=== PATIENT | female | born 1930 | race Caucasian/White ===

== ENCOUNTER → 2016-10-10 | Outpatient (CLI) | payer OTHER ==
[~2016-10-10] MED LIST: ACET-1311 PO; AMOX500T PO; ASCO500T3 PO; ASPI81TA28 PO; CALC-211 PO; CLC/300 PO; CYAN10005 PO; DCL250 PO; DIGO0.1219 PO; DOCU-94 PO; LNX125 PO; LPR100 PO; LSN5 PO; MIRT15TA2 PO; OXYC5TAB PO; POLY335019 PO; SENN-65 PO; SIMV40TA2 PO; TRAM-10 PO; WARF-285 PO; WARF2.5T8 PO
[2016-10-10 10:33] LABS: INR 1.5 (0.9-1.1); PROTHROMBIN TIME (PATIENT) 16.8 SECONDS (9.0-12.0)
== END | disposition home or self-care (01) ==
LOC: C.LABVPSUA 09:57
PROVIDERS: ATTEND Internal Medicine Critical Care Medicine
DX: I26.99 Other pulmonary embolism without acute cor pulmonale (principal)

== ENCOUNTER → 2016-10-13 | Outpatient (CLI) | payer OTHER ==
[2016-10-13 10:29] LABS: INR 1.5 (0.9-1.1); PROTHROMBIN TIME (PATIENT) 16.7 SECONDS (9.0-12.0)
== END ==
LOC: C.LABVPSUA 09:46
PROVIDERS: ATTEND Internal Medicine Critical Care Medicine
DX: I48.91 Unspecified atrial fibrillation (principal)

== ENCOUNTER → 2016-10-28 | Outpatient (CLI) | payer OTHER ==
[2016-10-28 07:56] LABS: INR 2.6 (0.9-1.1)
== END ==
LOC: C.LABVPSUA 10:52
PROVIDERS: ATTEND Internal Medicine Critical Care Medicine
DX: I82.409 Acute embolism and thrombosis of unspecified deep veins of unspecified lower extremity (principal)

== ENCOUNTER → 2016-10-31 | Outpatient (CLI) | payer OTHER ==
[2016-10-31 09:38] LABS: INR 2.3 (0.9-1.1); PROTHROMBIN TIME (PATIENT) 25.8 SECONDS (9.0-12.0)
== END ==
LOC: C.LABVPSUA 09:17
PROVIDERS: ATTEND Internal Medicine Critical Care Medicine
DX: I82.409 Acute embolism and thrombosis of unspecified deep veins of unspecified lower extremity (principal)

== ENCOUNTER → 2016-11-07 | Outpatient (CLI) | payer OTHER ==
[2016-11-07 09:43] LABS: INR 3.2 (0.9-1.1); PROTHROMBIN TIME (PATIENT) 36.1 SECONDS (9.0-12.0)
== END ==
LOC: C.LABVPSUA 09:23
PROVIDERS: ATTEND Internal Medicine Critical Care Medicine
DX: I82.409 Acute embolism and thrombosis of unspecified deep veins of unspecified lower extremity (principal)

== ENCOUNTER → 2016-11-21 | Outpatient (CLI) | payer OTHER ==
[~2016-11-21] MED LIST changes: -DCL250 PO
[2016-11-21 10:29] LABS: BLOOD UREA NITROGEN 18 mg/dl (7-18); CREATININE 0.91 mg/dl (0.60-1.20)
[2016-11-21 10:33] LABS: PREALBUMIN 16.4 mg/dl (20-40); PROTHROMBIN TIME (PATIENT) 56.1 SECONDS (9.0-12.0)
[2016-11-21 10:34] LABS: INR 4.9 (0.9-1.1)
== END | disposition home or self-care (01) ==
LOC: C.LABVPSUA 09:41
PROVIDERS: ATTEND Internal Medicine Critical Care Medicine
DX: Z01.812 Encounter for preprocedural laboratory examination (principal); I48.91 Unspecified atrial fibrillation; S31.839A Unspecified open wound of anus, initial encounter; X58.XXXA Exposure to other specified factors, initial encounter; M10.079 Idiopathic gout, unspecified ankle and foot

== ENCOUNTER → 2016-11-22 | Outpatient (CLI) | payer OTHER ==
[~2016-11-22] MED LIST changes: +OPTIRAY 320 IV PRN
--- NOTE | 2016-11-22 12:59 | DIAGNOSTIC IMAGING REPORT ---
PELVIS W/IV AND ORAL CONT (CT) HISTORY: Perirectal pain. PERIRECTAL ABSCESS TECHNIQUE: Multiaxial CT images of the pelvis performed following the use of intravenous and oral contrast. COMPARISON STUDY: Abdomen and pelvis CT 08/25/2016. FINDINGS: No perirectal fluid collections to suggest an abscess. Large amount well-formed stool seen within the rectum, unchanged. The uterus is surgically absent. The bladder is unremarkable. No pelvic free fluid. The visualized loops of bowel show no wall thickening or obstruction. Normal appendix. Scarlike densities within the left groin. Extensive vascular calcifications. 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 This remains unchanged. Multifocal stenosis within the right superficial femoral artery. No pelvic lymphadenopathy. Cholelithiasis. Midline ventral hernia containing a short segment of the transverse colon is again noted. Left posterior iliac bone defect consistent with postoperative change. Posterior decompression within the lower lumbar spine. IMPRESSION: 1. No perirectal fluid collections to suggest an abscess. 2. Rectosigmoid fecal fraction is again noted. 3. Additional chronic findings as described above. Electronically signed by: Anil Fontenot M.D. 11/22/2016 12:58 PM Dictated Date/Time: 11/22/2016 12:42 PM
== END | disposition home or self-care (01) ==
LOC: C.CTS 09:46
PROVIDERS: ATTEND Emergency Medicine
DX: K61.1 Rectal abscess (principal)

== ENCOUNTER → 2016-11-23 | Outpatient (CLI) | payer OTHER ==
[~2016-11-23] MED LIST changes: -OPTIRAY 320 IV PRN
[2016-11-23 09:38] LABS: PROTHROMBIN TIME (PATIENT) 22.6 SECONDS (9.0-12.0)
== END | disposition home or self-care (01) ==
LOC: C.LABVPSUA 08:40
PROVIDERS: ATTEND Internal Medicine Critical Care Medicine
DX: I48.91 Unspecified atrial fibrillation (principal)

== ENCOUNTER → 2016-11-27 | Outpatient (CLI) | payer OTHER ==
[2016-11-27 10:56] LABS: INR 1.2 (0.9-1.1); PROTHROMBIN TIME (PATIENT) 13.3 SECONDS (9.0-12.0)
== END | disposition home or self-care (01) ==
LOC: C.LABVPSUA 10:06
PROVIDERS: ATTEND Internal Medicine Critical Care Medicine
DX: I48.91 Unspecified atrial fibrillation (principal)

== ENCOUNTER → 2016-11-30 | Outpatient (CLI) | payer OTHER ==
[2016-11-30 10:13] LABS: INR 1.6 (0.9-1.1); PROTHROMBIN TIME (PATIENT) 16.9 SECONDS (9.0-12.0)
== END ==
LOC: C.LABVPSUA 09:26
PROVIDERS: ATTEND Internal Medicine Critical Care Medicine
DX: I48.91 Unspecified atrial fibrillation (principal)

== ENCOUNTER → 2016-12-07 | Outpatient (CLI) | payer OTHER ==
[2016-12-07 10:15] LABS: INR 1.9 (0.9-1.1); PROTHROMBIN TIME (PATIENT) 21.2 SECONDS (9.0-12.0)
== END | disposition home or self-care (01) ==
LOC: C.LABVPSUA 09:26
PROVIDERS: ATTEND Internal Medicine Critical Care Medicine
DX: I48.91 Unspecified atrial fibrillation (principal)

== ENCOUNTER → 2016-12-11 | Outpatient (CLI) | payer OTHER ==
[2016-12-11 10:36] LABS: PROTHROMBIN TIME (PATIENT) 21.5 SECONDS (9.0-12.0)
== END | disposition home or self-care (01) ==
LOC: C.LABVPSUA 10:15
PROVIDERS: ATTEND Internal Medicine Critical Care Medicine
DX: I48.91 Unspecified atrial fibrillation (principal)

== ENCOUNTER → 2016-12-20 | Outpatient (CLI) | payer OTHER ==
[2016-12-20 10:32] LABS: INR 2.2 (0.9-1.1); PROTHROMBIN TIME (PATIENT) 23.8 SECONDS (9.0-12.0)
== END | disposition home or self-care (01) ==
LOC: C.LABVPSUA 10:11
PROVIDERS: ATTEND Internal Medicine Critical Care Medicine
DX: I48.91 Unspecified atrial fibrillation (principal)

== ENCOUNTER → 2016-12-27 | Outpatient (CLI) | payer OTHER ==
[2016-12-27 10:52] LABS: INR 2.4 (0.9-1.1); PROTHROMBIN TIME (PATIENT) 26.8 SECONDS (9.0-12.0)
== END | disposition home or self-care (01) ==
LOC: C.LABVPSUA 10:13
PROVIDERS: ATTEND Internal Medicine Critical Care Medicine
DX: I48.91 Unspecified atrial fibrillation (principal)

== ENCOUNTER → 2017-01-15 | Outpatient (CLI) | payer OTHER ==
[2017-01-15 10:20] LABS: INR 1.9 (0.9-1.1); PROTHROMBIN TIME (PATIENT) 20.4 SECONDS (9.0-12.0)
== END ==
LOC: C.LABVPSUA 09:56
PROVIDERS: ATTEND Internal Medicine Critical Care Medicine
DX: I48.91 Unspecified atrial fibrillation (principal)

== ENCOUNTER → 2017-01-29 | Outpatient (CLI) | payer OTHER ==
[2017-01-29 10:23] LABS: BASO % 0.3 %; BASO ABS # 0.03 K/uL (0-0.2); EOS % 3.1 %; HEMATOCRIT 43.7 % (37-47); IG% 0.7 %; LYMPH % 10.7 %; LYMPH ABS # 1.15 K/uL (1.2-3.4); MEAN CELL VOLUME 95.6 fL (80-100); MEAN CORPUSCULAR HEMOGLOBIN 29.5 pg (25-34); MEAN CORPUSCULAR HGB CONC 30.9 g/dl (32-36); MEAN PLATELET VOLUME 11.1 fL (7.4-10.4); MONO % 5.5 %; NEUT % 79.7 %; PLATELET COUNT 244 K/uL (130-400); RED BLOOD COUNT 4.57 M/uL (4.2-5.4); WHITE BLOOD COUNT 10.72 K/uL (4.8-10.8)
[2017-01-29 10:28] LABS: INR 2.6 (0.9-1.1); PROTHROMBIN TIME (PATIENT) 28.4 SECONDS (9.0-12.0)
[2017-01-29 10:59] LABS: BLOOD UREA NITROGEN 22 mg/dl (7-18); BUN/CREATININE RATIO 24.1 (10-20); CALCIUM 8.9 mg/dl (8.5-10.1); CARBON DIOXIDE 23 mmol/L (21-32); CHLORIDE 111 mmol/L (98-107); CREATININE 0.92 mg/dl (0.60-1.20); GLUCOSE 128 mg/dl (70-99); POTASSIUM 3.9 mmol/L (3.5-5.1); SODIUM 144 mmol/L (136-145)
[2017-01-29 11:00] LABS: ANISOCYTOSIS PRESENT; COMPLETE YES
== END | disposition home or self-care (01) ==
LOC: C.LABVPSUA 09:54
PROVIDERS: ATTEND Internal Medicine Critical Care Medicine
DX: I48.91 Unspecified atrial fibrillation (principal); I10 Essential (primary) hypertension; I82.409 Acute embolism and thrombosis of unspecified deep veins of unspecified lower extremity

== ENCOUNTER → 2017-02-14 | Outpatient (CLI) | payer OTHER ==
[2017-02-14 10:17] LABS: INR 2.1 (0.9-1.1); PROTHROMBIN TIME (PATIENT) 22.8 SECONDS (9.0-12.0)
== END | disposition home or self-care (01) ==
LOC: C.LABVPSUA 09:49
PROVIDERS: ATTEND Internal Medicine Critical Care Medicine
DX: I82.409 Acute embolism and thrombosis of unspecified deep veins of unspecified lower extremity (principal)

== ENCOUNTER → 2017-03-16 | Outpatient (CLI) | payer OTHER ==
[2017-03-16 09:53] LABS: INR 2.1 (0.9-1.1); PROTHROMBIN TIME (PATIENT) 23.4 SECONDS (9.0-12.0)
== END | disposition home or self-care (01) ==
LOC: C.LABVPSUA 09:13
PROVIDERS: ATTEND Internal Medicine Critical Care Medicine
DX: I48.91 Unspecified atrial fibrillation (principal)

== ENCOUNTER → 2017-03-21 | Outpatient (CLI) | payer OTHER ==
--- NOTE | 2017-03-21 14:47 | DIAGNOSTIC IMAGING REPORT ---
MRI OF THE LEFT MIDFOOT NO CONTRAST CLINICAL HISTORY: Open wound. History of transmetatarsal amputation. Possible osteomyelitis. COMPARISON STUDY: 02/01/2016 FINDINGS: Imaging was performed in the sagittal, coronal, and axial planes. There are postsurgical changes of transmetatarsal amputations of the first through fifth toes. There is dorsal soft tissue edema most pronounced at the level of the first metatarsal stump. There is mild T1 and T2 edema involving the dorsal cortex of the residual first metatarsal. Given the overlying wound, the findings are felt to represent osteomyelitis. There are no additional areas of marrow edema to indicate osteomyelitis. There are no fluid collections to indicate a soft tissue abscess. There is a probable old bone infarct involving the distal tibia. IMPRESSION: 1. Postsurgical changes of transmetatarsal amputations involving the first through fifth digits 2. T1 and T2 marrow edema involving the dorsal cortex of the first metatarsal stump, consistent with osteomyelitis. Electronically signed by: Azael Dietrich M.D. 03/21/2017 2:46 PM Dictated Date/Time: 03/21/2017 2:40 PM
== END | disposition home or self-care (01) ==
LOC: C.MRIBC 13:29
PROVIDERS: ATTEND Physician Assistant
DX: Z89.432 Acquired absence of left foot (principal)

== ENCOUNTER → 2017-03-26 | Outpatient (CLI) | payer OTHER ==
--- NOTE | 2017-03-28 08:49 | CODING QUERY NO DIAGNOSIS ---
TREATMENT RENDERED WITHOUT A DIAGNOSIS Dr. Johnson, To promote full compliance with coding requirements relating to patient care, physician participation is requested in all cases of skin former uncertainty. Please assist us with providing a diagnosis/symptom for the test(s) below: A diagnosis/symptom was not documented on your Order. A valid diagnosis/symptom is required to bill all insurances. Please remember that we are unable to code a diagnosis of rule out, probable, possible, questionable, or suspected. Tests that require a diagnosis: * PREALBUMIN DIAGNOSIS: DATE OF SERVICE: 03/26/17 Provider Signature: Date: Thank you Akira Bennett [facility] Information Management Once completed, please kindly fax back to [phone] For questions please call [phone]
== END | disposition home or self-care (01) ==
LOC: C.LABVPSUA 08:50
PROVIDERS: ATTEND Nurse Practitioner
DX: R53.1 Weakness (principal)

== ENCOUNTER → 2017-03-27 | Outpatient (CLI) | payer OTHER ==
[2017-03-27 11:02] LABS: BASO % 0.5 %; BASO ABS # 0.06 K/uL (0-0.2); COMPLETE YES; HEMATOCRIT 46.3 % (37-47); IG% 0.9 %; LYMPH % 9.6 %; LYMPH ABS # 1.15 K/uL (1.2-3.4); MEAN CORPUSCULAR HEMOGLOBIN 31.3 pg (25-34); MEAN CORPUSCULAR HGB CONC 30.7 g/dl (32-36); MEAN PLATELET VOLUME 11.9 fL (7.4-10.4); MONO % 9.3 %; NEUT % 76.7 %; PLATELET COUNT 244 K/uL (130-400); RED BLOOD COUNT 4.54 M/uL (4.2-5.4); WHITE BLOOD COUNT 11.96 K/uL (4.8-10.8)
[2017-03-27 11:15] LABS: BLOOD UREA NITROGEN 36 mg/dl (7-18); BUN/CREATININE RATIO 32.8 (10-20); CALCIUM 8.6 mg/dl (8.5-10.1); CARBON DIOXIDE 23 mmol/L (21-32); CHLORIDE 114 mmol/L (98-107); GLUCOSE 106 mg/dl (70-99); SODIUM 148 mmol/L (136-145)
== END | disposition home or self-care (01) ==
LOC: C.LABVPSUA 10:08
PROVIDERS: ATTEND Internal Medicine Critical Care Medicine
DX: I10 Essential (primary) hypertension (principal)

== ENCOUNTER → 2017-03-30 | Outpatient (CLI) | payer OTHER ==
--- NOTE | 2017-03-30 09:48 | DIAGNOSTIC IMAGING REPORT ---
HEAD CT NONCONTRAST CT DOSE: HISTORY: Altered mental status. Confusion. CHANGE IN COGNITION TECHNIQUE: Multiaxial CT images of the head were performed without the use of intravenous contrast. Automated exposure control was utilized for this study. Comparison: Head CT 08/26/2016. Findings: Partial opacification of the right sphenoid sinus, unchanged. The mastoid air cells are clear. The calvarium and skull base are intact. Atrophy and microvascular ischemic changes are again noted. 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 There is no mass, hematoma, midline shift, or acute infarct. Impression: No significant change compared to the prior study. No acute intracranial abnormality. Old left frontal lobe infarct. Electronically signed by: Anil Fontenot M.D. 03/30/2017 9:47 AM Dictated Date/Time: 03/30/2017 9:38 AM
== END | disposition home or self-care (01) ==
LOC: C.CTS 09:18
PROVIDERS: ATTEND Internal Medicine Critical Care Medicine
DX: I70.25 Atherosclerosis of native arteries of other extremities with ulceration (principal)

== ENCOUNTER → 2017-03-30 | Outpatient (CLI) | payer OTHER ==
[~2017-03-30] MED LIST changes: +OPTIRAY 320 IV PRN
--- NOTE | 2017-03-30 10:22 | DIAGNOSTIC IMAGING REPORT ---
CHEST 2 VIEWS ROUTINE HISTORY: Chest CONGESTION COMPARISON: Chest 09/15/2016. FINDINGS: Low lung volumes. No pneumothorax. The heart is mildly enlarged. Mild diffuse interstitial thickening suggestive mild pulmonary edema. Tortuous thoracic aorta, unchanged. Small bilateral pleural effusions. Bibasilar densities favor atelectasis from the small pleural effusions. IMPRESSION: Mild interstitial pulmonary edema and small bilateral pleural effusions. Electronically signed by: Anil Fontenot M.D. 03/30/2017 10:20 AM Dictated Date/Time: 03/30/2017 10:19 AM
--- NOTE | 2017-03-30 11:00 | DIAGNOSTIC IMAGING REPORT ---
CT ANGIOGRAM OF THE ABDOMEN AND PELVIS WITH BILATERAL LOWER EXTREMITY RUNOFF COMBO CLINICAL HISTORY: Atherosclerosis. COMPARISON STUDY: Abdominal CT dated 08/25/2016. MRI of the left foot dated 03/21/2017. TECHNIQUE: Before and following the IV administration of 94 cc of Optiray 320, CT angiogram of the abdomen and pelvis with bilateral lower externally runoff was performed from the lung bases to the feet. Images are reviewed in the axial, sagittal, and coronal planes. 3-D MIPS images are created and assessed. IV contrast was administered without complication. The examination is degraded by streak artifact from the patient's arms which could not be elevated above the abdomen or pelvis. The Examination is also degraded by motion artifact. CT DOSE: 3209.13 mGy.cm FINDINGS: Lower chest: The heart is enlarged and without pericardial effusion. The mitral annulus and coronary arteries are densely calcified. There are small pleural effusions and bibasilar atelectasis. No airspace consolidation is seen typical for pneumonia. Advanced emphysema is noted. There is a moderate hiatal hernia. Liver: The contrast-enhanced liver is normal in size, contour, and attenuation. There is no intrahepatic or ductal dilatation. Reflux of contrast into the IVC and hepatic veins suggests cardiac dysfunction. Gallbladder: Unremarkable. Spleen: Normal in size and attenuation. Pancreas: Atrophic and grossly unremarkable. Adrenal glands: Unremarkable. Kidneys: The contrast since kidneys are atrophic and without hydronephrosis. No renal calculi are identified on the unenhanced series. The kidneys enhance symmetrically. Abdominal aorta and iliac arteries: There is advanced atherosclerotic calcification of the abdominal aorta and iliac arteries. The abdominal aorta is widely patent. No aortic dissection is identified. 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 A thrombosed stent is seen in the left common iliac artery. There is approximately 50% stenosis within the proximal right common iliac artery. The vessel remains patent. The right internal iliac artery is diminutive but patent. The right external iliac artery is patent. Major branches of the abdominal aorta: There is high-grade stenosis (greater than 75%) at the origin of the celiac trunk. There is mild poststenotic dilatation which measures up to 9 mm. 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 This extends approximately 3.5 cm where there is reconstitution. This is best seen on axial image #160. The inferior mesenteric arteries patent noting mild stenosis at its origin. Hepatic arterial anatomy is conventional. The splenic artery appears patent. There are single bilateral renal arteries. There is approximately 50% stenosis at the origin of both renal arteries. The remainder of the vessels appear patent. Right lower extremity runoff: There is advanced atherosclerotic calcification and plaque seen throughout the arteries of the right lower extremity. The right common femoral artery is patent with diffuse greater than 50% stenosis. The right profunda femoris artery is patent. The right superficial femoral artery is diminutive. The proximal vessel appears patent with trace flow. There is likely near complete to complete occlusion of the mid to distal portions of the vessel. Left lower extremity runoff: There is advanced atherosclerotic calcification and irregularity of the left lower extremity vessels. There are foci of trace flow within the proximal left common femoral artery which is occluded to the bifurcation. There is reconstitution of flow in the left profunda femoris artery which is patent. The left superficial femoral artery is diminutive and appears completely thrombosed in the proximal to mid portions. There is reconstitution in the distal superficial femoral artery seen on axial image #357 of the delayed series. Trace/thready flow is seen within the distal superficial femoral artery. Thready flow is also seen within the popliteal artery. The calf arteries are diminutive. There is trace/thready flow seen within all 3 vessels. There is occlusion of the distal peroneal artery just above the ankle joint seen on axial image #795. The anterior tibial and posterior tibial arteries are patent to the foot. The dorsalis pedis artery appears patent. Bowel: There is a large ventral hernia containing nonobstructed loops of small bowel and colon. There is rectosigmoid fecal impaction and moderate constipation. No bowel obstruction is seen. The appendix is well-visualized and normal. Peritoneum: There is no intraperitoneal free air or abdominal ascites. Lymphadenopathy: None. Pelvic viscera: The bladder is normal as visualized. The uterus is surgically absent. No adnexal lesion is seen. Findings suggest pelvic floor prolapse. Postoperative change is seen in the left groin. Skeletal structures: The skeletal structures are osteopenic. No lytic or blastic bony lesions are seen. A bone graft donor site is noted in the left ilium. There is advanced lumbosacral spondylosis and scoliosis. There is evidence of postoperative change in the lower lumbar region. There is been amputation of the right lower extremity at the level of the distal femur. There has also been amputation in the left forefoot at the level of the metatarsals. The foot is markedly heterogeneous. There is mild cortical destruction seen along the resection margin of the first metatarsal. This likely corresponds to osteomyelitis when correlated with the recent MRI results. Lower extremity soft tissues: The soft tissues and musculature of the left lower extremity are markedly atrophic. IMPRESSION: 1. Significantly motion and streak artifact degraded examination. 2. Severe atherosclerotic disease. 3. 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 4. The majority of the left common femoral artery is thrombosed with only trace segmental flow identified. There is complete thrombosis of the proximal to mid portions of the left superficial femoral artery. 5. There is reconstitution within the distal left superficial femoral artery. Trace/thready flow is seen within the distal superficial femoral and left popliteal arteries. 6. Trace/thready flow is seen within the left calf arteries which are diminutive. There is two-vessel runoff to the foot, as the peroneal artery is occluded above the ankle joint. 7. There approximately 50% stenosis within the right common iliac artery. 8. The right superficial femoral artery is diminutive and the mid to distal portions appear occluded. 9. 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 10. There is greater than 75% stenosis at the origin of the celiac trunk. Approximately 50% stenosis is present at the origin of both renal arteries. 11. Cardiomegaly and severe emphysema. 12. There is rectosigmoid fecal impaction and moderate constipation. 13. There is a large ventral hernia containing nonobstructed loops of small bowel and colon. 14. Small pleural effusions. 15. Findings suggest osteomyelitis at the distal base of the left first metatarsal stump. This was better characterized on the 03/21/2017 MRI. 16. There are postoperative changes from right above the lower extremity amputation. 17. Additional findings as above. Electronically signed by: Jamie Rodriguez M.D. 03/30/2017 10:59 AM Dictated Date/Time: 03/30/2017 10:17 AM
== END | disposition home or self-care (01) ==
LOC: C.CTS 08:39
PROVIDERS: ATTEND Physician Assistant
DX: J81.1 Chronic pulmonary edema (principal); J90 Pleural effusion, not elsewhere classified; I70.209 Unspecified atherosclerosis of native arteries of extremities, unspecified extremity; I74.5 Embolism and thrombosis of iliac artery; I74.3 Embolism and thrombosis of arteries of the lower extremities; I70.25 Atherosclerosis of native arteries of other extremities with ulceration

== ENCOUNTER 2017-04-08 07:41 | Inpatient (IN) | payer OTHER ==
[~2017-04-08] VITALS: Ht 149.9 cm; Wt 73.1 kg
[~2017-04-08 07:41] MED LIST changes: -DIGO0.1219 PO; -OPTIRAY 320 IV PRN
[2017-04-08 08:32] LABS: ISTAT CREATININE 1.1 mg/dl (0.6-1.3); ISTAT HEMOGLOBIN 14.6 g/dl (12.0-16.0); ISTAT IONIZED CALCIUM 1.15 mmol/l (1.12-1.32)
[2017-04-08 08:37] LABS: BASO % 0.3 %; BASO ABS # 0.03 K/uL (0-0.2); EOS % 3.2 %; HEMATOCRIT 44.4 % (37-47); LYMPH % 12.5 %; LYMPH ABS # 1.39 K/uL (1.2-3.4); MEAN CELL VOLUME 102.5 fL (80-100); MEAN CORPUSCULAR HEMOGLOBIN 31.4 pg (25-34); MEAN CORPUSCULAR HGB CONC 30.6 g/dl (32-36); MEAN PLATELET VOLUME 11.3 fL (7.4-10.4); PLATELET COUNT 221 K/uL (130-400); RED BLOOD COUNT 4.33 M/uL (4.2-5.4); WHITE BLOOD COUNT 11.15 K/uL (4.8-10.8)
--- NOTE | 2017-04-08 08:38 | EMERGENCY ROOM VISIT NOTE ---
History Report prepared by Francis: Ernst Calderon Under the Supervision of: Dr. Vernon Perea M.D. First contact with patient: 07:48 Chief Complaint: BRADYCARDIA Stated Complaint: LETHARGIC Nursing Triage Summary: had chest pain at the [facility] states it was 8/0-10. denies pain on admission to ed History of Present Illness The patient is an 87 year old female who presents to the Emergency Room via [facility] with complaints of chest pain that began shortly prior to arrival. Per EMS staff, they were initially called to the scene for chest pain and shortness of breath. Upon arrival to the Emergency Department the patient states that both of these symptoms have resolved, and currently has no complaints. She initially rated her pain as an 8/10 in severity. EMS state that the patient was lethargic during their evaluation but was answering all questions appropriately. The patient denies any recent illnesses and notes that her chest pain today onset suddenly. She denies any history of kidney disease, but does have a history of atrial fibrillation. Source of History: patient, family, EMS Onset: Shortly BUSINESS APPLICATIONS SPECIALIST Position: chest Symptom Intensity: 8/10 Timing: resolved Associated Symptoms: + SOB (RESOLVED) Note: Lethargy Review of Systems See HPI for pertinent positives & negatives. A total of 10 systems reviewed and were otherwise negative. 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 Nurse's notes were reviewed and I agree with. Family History No pertinent family history Social History Smoking Status: Never Smoker Alcohol Use: none Drug Use: none Marital Status: single, Housing Status: correction Occupation Status: retired Current/Historical Medications Scheduled Ascorbic Acid (Vitamin C), 500 MG PO BID Aspirin (Aspirin Ec), 81 MG PO BIDM Calcium Carbonate-Cholecalcife (Oyster Shell Calcium + D), 1 TAB PO BIDM Clindamycin HCl (Clindamycin HCl), 1 TAB PO QID Cyanocobalamin (Vitamin B-12), 1,000 MCG PO QAM Digoxin (Digox), 1 TAB PO DAILY Docusate Sodium (Colace), 100 MG PO BID Lisinopril (Lisinopril), 5 MG PO QAM Metoprolol Tartrate (Metoprolol Tartrate), 200 MG PO BID Mirtazapine Soltab (Remeron Soltab), 45 MG PO HS Senna/Docusate Sod (Senokot S), 1 TAB PO DAILY Simvastatin (Zocor), 40 MG PO HS Warfarin Sodium (Warfarin Sodium), 1 TAB PO HS Scheduled PRN Acetaminophen (Tylenol), 650 MG PO Q4 PRN for Pain or Fever Polyethylene Glycol 3350 (Miralax), 17 GM PO DAILY PRN for Constipation Tramadol (Ultram), 50 MG PO Q6H PRN for Pain Allergies Coded Allergies: Influenza Vaccines (Verified Allergy, Mild, ., 04/08/17) Solomons (Verified Allergy, Mild, HIVES, 04/08/17) Tomato (Verified Allergy, Mild, HIVES, 04/08/17) Diazepam (Verified Allergy, Unknown, ., 04/08/17) Diltiazem (Verified Allergy, Unknown, ITCHY CHIN, 04/08/17) Salicylates (Verified Allergy, Unknown, unknown- has had aspirin in the past, 04/08/17) Physical Exam Vital Signs Date Time Temp Pulse Resp B/P (MAP) Pulse Ox O2 Delivery O2 Flow Rate FiO2 04/08/17 10:12 36 6 100 04/08/17 10:02 143/64 04/08/17 09:57 38 0 100 04/08/17 09:47 171/49 04/08/17 09:42 36 0 100 04/08/17 09:31 154/62 04/08/17 09:27 100 Nasal Cannula 2.0 04/08/17 09:27 35 3 100 04/08/17 09:22 36 11 100 04/08/17 09:17 37 8 152/93 95 04/08/17 09:12 36 3 100 04/08/17 09:11 158/57 04/08/17 09:07 36 2 100 04/08/17 09:02 35 7 100 04/08/17 08:57 38 2 97 04/08/17 08:52 36 5 97 04/08/17 08:51 150/47 04/08/17 08:47 37 3 04/08/17 08:42 37 2 152/54 99 04/08/17 08:37 35 15 98 04/08/17 08:32 38 3 162/49 97 04/08/17 08:27 37 4 98 04/08/17 08:22 142/56 04/08/17 08:21 36 2 98 04/08/17 08:20 98 134/68 04/08/17 08:16 36 2 156/55 98 04/08/17 08:13 149/53 04/08/17 08:13 98 Nasal Cannula 2.0 04/08/17 08:11 36 4 99 04/08/17 08:08 88 Room Air 04/08/17 08:08 87 Room Air 04/08/17 08:06 38 4 97 04/08/17 08:01 36 2 98 04/08/17 07:59 144/59 04/08/17 07:56 36 2 98 04/08/17 07:52 194/56 04/08/17 07:51 37 6 96 04/08/17 07:48 38 04/08/17 07:45 36.7 38 18 149/53 98 Nasal Cannula 2.0 Physical Exam General: Chronically ill older female. Bradycardic heart rate in the 30's. Denies chest pain or shortness of breath. Normal speech HEENT: Normal cephalic atraumatic. Pupils are equal round and reactive to light. Extraocular movements are intact. Oropharynx is pink with moist mucous membranes. No swelling of the mouth lips or tongue. Neck: Supple with a midline trachea. No meningeal signs or stiffness, no JVD or bruits. No Stridor. Chest: Clear to auscultation bilaterally. No wheezes or rhonchi. No increased work of breathing. Heart: Bradycardic rate and normal rhythm. Abdomen: Soft nontender, nondistended without rebound guarding or rigidity. Extremities: There is a right AKA amputation. bandage on the left leg. No cyanosis clubbing or edema. No calf tenderness or assymetry Spine/Back. Non tender to palpation. No CVA tenderness Skin: Good turgor without rashes. Neurologic exam: Cranial nerves two through 12 are intact. Motor and sensation are intact and symmetrical throughout. Medical Decision & Procedures ER Provider Diagnostic Interpretation: Radiology results as stated below per my review and radiologist interpretation: SINGLE VIEW CHEST CLINICAL HISTORY: Cardiac arrhythmia. Heart block. FINDINGS: An AP, portable, semierect chest radiograph is compared to study dated 03/30/2017 and correlated with chest CT dated 08/25/2016. The examination is degraded by portable technique and patient rotation. The heart is top normal for projection and there is atherosclerotic calcification of the thoracic aorta. There is pulmonary vascular congestion. Chronic interstitial thickening and elevation of the right hemidiaphragm are unchanged from previous. Small pleural effusions are noted and there is bibasilar consolidation. No pneumothorax is seen. The skeletal structures are osteopenic. Degenerative change is noted throughout the thoracic spine. IMPRESSION: 1. Cardiomegaly and pulmonary vascular congestion. 2. Small pleural effusions with bibasilar consolidation. This likely represents atelectasis. Clinical correlation will be required. Electronically signed by: Jamie Rodriguez M.D. 04/08/2017 9:05 AM Dictated Date/Time: 04/08/2017 9:02 AM Laboratory Results 04/08/17 08:01 Red Blood Count 4.33, Mean Corpuscular Volume 102.5, Mean Corpuscular Hemoglobin 31.4, Mean Corpuscular Hemoglobin Concent 30.6, Mean Platelet Volume 11.3, Neutrophils (%) (Auto) 73.0, Lymphocytes (%) (Auto) 12.5, Monocytes (%) ( Auto) 9.0, Eosinophils (%) (Auto) 3.2, Basophils (%) (Auto) 0.3, Neutrophils # ( Auto) 8.15, Lymphocytes # (Auto) 1.39, Monocytes # (Auto) 1.00, Eosinophils # ( Auto) 0.36, Basophils # (Auto) 0.03 04/08/17 08:01 Test 04/08/17 08:01 04/08/17 08:18 04/08/17 08:19 White Blood Count 11.15 K/uL (4.8-10.8) Red Blood Count 4.33 M/uL (4.2-5.4) Hemoglobin 13.6 g/dL (12.0-16.0) Hematocrit 44.4 % (37-47) Mean Corpuscular Volume 102.5 fL (80-100) Mean Corpuscular Hemoglobin 31.4 pg (25-34) Mean Corpuscular Hemoglobin Concent 30.6 g/dl (32-36) Platelet Count 221 K/uL (130-400) Mean Platelet Volume 11.3 fL (7.4-10.4) Neutrophils (%) (Auto) 73.0 % Lymphocytes (%) (Auto) 12.5 % Monocytes (%) (Auto) 9.0 % Eosinophils (%) (Auto) 3.2 % Basophils (%) (Auto) 0.3 % Neutrophils # (Auto) 8.15 K/uL (1.4-6.5) Lymphocytes # (Auto) 1.39 K/uL (1.2-3.4) Monocytes # (Auto) 1.00 K/uL (0.11-0.59) Eosinophils # (Auto) 0.36 K/uL (0-0.5) Basophils # (Auto) 0.03 K/uL (0-0.2) RDW Standard Deviation 75.4 fL (36.4-46.3) RDW Coefficient of Variation 20.7 % (11.5-14.5) Immature Granulocyte % (Auto) 2.0 % Immature Granulocyte # (Auto) 0.22 K/uL (0.00-0.02) Nucleated RBC Absolute Count (auto) 0.30 K/uL (0-0) Nucleated Red Blood Cells % 2.7 % Polychromasia 1+ Anisocytosis PRESENT Spherocytes OCCASIONAL Prothrombin Time 35.0 SECONDS (9.0-12.0) Prothromb Time International Ratio 3.1 (0.9-1.1) Activated Partial Thromboplast Time 35.0 SECONDS (21.0-31.0) Partial Thromboplastin Ratio 1.3 Est Creatinine Clear Calc Drug Dose 28.8 ml/min Estimated GFR () 46.7 Estimated GFR (Non- 40.3 BUN/Creatinine Ratio 30.6 (10-20) Calcium Level 8.5 mg/dl (8.5-10.1) Magnesium Level 2.7 mg/dl (1.8-2.4) Total Bilirubin 0.4 mg/dl (0.2-1) Direct Bilirubin 0.2 mg/dl (0-0.2) Aspartate Amino Transf (AST/SGOT) 18 U/L (15-37) Alanine Aminotransferase (ALT/SGPT) 22 U/L (12-78) Alkaline Phosphatase 87 U/L (45-117) Total Creatine Kinase 69 U/L (26-192) Creatine Kinase MB 1.6 ng/ml (0.5-3.6) Creatine Kinase MB Ratio 2.3 (0-3.0) Total Protein 7.1 gm/dl (6.4-8.2) Albumin 2.4 gm/dl (3.4-5.0) Thyroid Stimulating Hormone (TSH) 1.770 uIu/ml (0.300-4.500) Digoxin Level 1.6 ng/ml (0.8-2.0) Bedside Troponin I 0.030 ng/ml (0-0.045) EF-Avv-J-Type Natriuretic Peptide 5005 pg/ml (0-1800) Bedside Hemoglobin 14.6 g/dl (12.0-16.0) Bedside Hematocrit 43 % (37-47) Bedside Sodium 147 mEq/L (135-144) Bedside Potassium 4.7 mEq/L (3.3-5.0) Bedside Chloride 109 mEq/L (101-112) Bedside Total CO2 23 mEq/l (24-31) Anion Gap 20.0 mmol/L (16-25) Bedside Blood Urea Nitrogen 37 mg/dl (7-18) Bedside Creatinine 1.1 mg/dl (0.6-1.3) Bedside Glucose (other) 92 mg/dl (70-99) Bedside Ionized Calcium (Inga) 1.15 mmol/l (1.12-1.32) Laboratory studies as stated above per my review. ECG Indication: chest pain, SOB/dyspnea Rate (beats per minute): 37 Rhythm: other (Junctional Bradycardia) Findings: nonspecific-ST abn Comparison ECG Date: Change: Junctional bradycardia is new from previous. ED Course 0748: Past medical records reviewed. The patient was evaluated in room A12, and a complete history and physical examination were performed. 0800: I discussed the case with Dr. Goss - [facility] [place] Cardiology at this time. He will come to the ED to evaluate the patient. 0807: I checked on the patient at this time. She remains asymptomatic and appears comfortable. The daughter was at bedside at this time, I discussed the patient's code status with her as well. 0839: I checked on the patient at this time. She is comfortable and asymptomatic. 0844: The patient's blood pressure remains stable at this time. Dr. Goss is now at bedside. 0849: I discussed the case with Dr. Isaiah MIRELES Hospitalist. He will evaluate the patient for further treatment. Medical Decision Blood pressure Screening: Patient was found to have an elevated blood pressure and was referred to their primary doctor for recheck and further treatment. Medication Reconciliation: I attest that I have personally reviewed the patient' s current medication list. Differential Diagnosis includes: Third degree heart block, electrolyte or metabolic abnormality, arrhythmia. This patient comes in as described above. She was placed in room A 12. The nurses called me to see her immediately as she was significant bradycardic. When I came in to see her ,she was otherwise asymptomatic. She was normal/ hypertensive with the blood pressure. She seemed to be tolerating the bradycardia surprisingly well. EKG shows junctional rhythm and on the monitor there are P waves that are not associated with the QRS complex and I think she is in a third surgery heart block. IV access established multiple blood testing was obtained i-STAT labs were obtained her potassium was not significantly abnormal. Digoxin level does not suggest given the abnormal. I did consult Dr. Goss ,who saw her promptly in the ER. Given the fact that she's been stable, he does not think she needs a pacemaker acutely but is going to hold hold the beta narcisa and they will keep an eye on her. Dr. Colon was also consulted the [facility] hospitalist and she was seen in the ER and will be admitted for further treatment and evaluation. Consults Time Called: 0755 Consulting Physician: Dr. Wolfgang MIRELES Cardiology Returned Call: 0800 I discussed the case with Dr. Wolfgang MIRELES Cardiology at this time. He will come to the ED to evaluate the patient. Additional Consults: Time Called: 0842 Consulted Physician: Dr. Isaiah MIRELES Hospitalist Returned Call: 0849 Additional Comments: I discussed the case with Dr. Isaiah MIRELES Hospitalist. He will evaluate the patient for further treatment. Impression Primary Impression: Third degree heart block Additional Impression: Bradycardia Scribe Attestation The scribe's documentation has been prepared under my direction and personally reviewed by me in its entirety. I confirm that the note above accurately reflects all work, treatment, procedures, and medical decision making performed by me. Departure Information Dispostion Being Evaluated By Hospitalist Referrals Haja Sommer M.D. (PCP) Patient Instructions My [facility] Problem Qualifiers
[2017-04-08 08:39] LABS: POINT OF CARE TROPONIN I 0.03 ng/ml (0-0.045)
[2017-04-08 08:46] LABS: INR 3.1 (0.9-1.1); PARTIAL THROMBOPLASTIN RATIO 1.3
[2017-04-08 08:52] LABS: BUN/CREATININE RATIO 30.6 (10-20); CALCIUM 8.5 mg/dl (8.5-10.1); CREATININE 1.2 mg/dl (0.60-1.20); MAGNESIUM 2.7 mg/dl (1.8-2.4); POTASSIUM 4.5 mmol/L (3.5-5.1)
[2017-04-08] MEDS ORDERED: DIGO0.1219 PO ×2 (08:59)
[2017-04-08 09:04] LABS: CKMB/CK RATIO 2.3 (0-3.0); THYROID STIMULATING HORMONE 1.77 uIu/ml (0.300-4.500)
--- NOTE | 2017-04-08 09:06 | DIAGNOSTIC IMAGING REPORT ---
SINGLE VIEW CHEST CLINICAL HISTORY: Cardiac arrhythmia. Heart block. FINDINGS: An AP, portable, semierect chest radiograph is compared to study dated 03/30/2017 and correlated with chest CT dated 08/25/2016. The examination is degraded by portable technique and patient rotation. The heart is top normal for projection and there is atherosclerotic calcification of the thoracic aorta. There is pulmonary vascular congestion. Chronic interstitial thickening and elevation of the right hemidiaphragm are unchanged from previous. Small pleural effusions are noted and there is bibasilar consolidation. No pneumothorax is seen. The skeletal structures are osteopenic. Degenerative change is noted throughout the thoracic spine. IMPRESSION: 1. Cardiomegaly and pulmonary vascular congestion. 2. Small pleural effusions with bibasilar consolidation. This likely represents atelectasis. Clinical correlation will be required. Electronically signed by: Jamie Rodriguez M.D. 04/08/2017 9:05 AM Dictated Date/Time: 04/08/2017 9:02 AM
[2017-04-08 09:10] LABS: ANISOCYTOSIS PRESENT; COMPLETE YES; POLYCHROMASIA 1+; SPHEROCYTE OCCASIONAL
[2017-04-08 09:27] VITALS: O2SAT 100; Ht 149.9 cm; Wt 73.1 kg
--- NOTE | 2017-04-08 09:54 | Cardiology Consultation ---
Cardiology Consultation Date of Consultation: Apr 08, 2017. Requesting Physician: Dr. Perea (ER) Attending Physician: Dr. Mast with Erin Em (PA-C) Reason for Consultation: Junctional Bradycardia Pt evaluation today including: conversation w/ patient, conversation w/ family , physical exam, chart review, lab review, review of studies, conversation w/ product management consultant, review of inpatient medication list, conversation w/ attending History of Present Illness Mrs. Kaur is a pleasant 87-year-old female with a history significant for prefer arterial disease (followed by Dr. Dubose), atrial fibrillation, pulmonary emboli/DVT scan, osteomyelitis, stroke, hypertension, and dyslipidemia. She resides at the [facility] and has family at the bedside, including her son Jeffrey and daughter in law, as well as 3 granddaughters. Family helps provide history as she herself is a poor historian. She was brought to the emergency department from her nursing facility with concern of chest discomfort . She recalls having substernal chest discomfort this morning. She cannot further characterize it. She states that she had palpitations and described her heart is racing this morning. She cannot recall should shortness of breath but nursing staff inform me that her oxygen saturation was 87% on room air when she entered the emergency department. She is very slow to answer questions. Her family states that she is actually talking better than usual and that she typically sleeps 18 hours a day. She is very sedentary and remains in bed or in a chair and is unable to walk following right above the knee amputation. They state that she basically wakes up the eat. There have been memory issues as well. She does not typically know the date or day. While here, it was noted that her heart rate is in the 30s. Her blood pressure has been actually elevated. There is concern for heart block but on ECG there is no discernible/definitive atrial activity. There is a telemetry strip with possible intermittent P waves, but not always consistent. She has been taking a total of 400 mg of metoprolol daily and also digoxin. She denies any chest discomfort or shortness of breath currently. There has not been any reported fevers, chills, abdominal pain, nausea, vomiting, or bleeding such as melena, hematochezia, or hematuria. She recently had CT angiogram of her vasculature for Dr. Dubose, and there are apparently discussions of further amputation of her left foot due to osteomyelitis. She is receiving antibiotics for this. Review of systems: As above and otherwise unobtainable due to patient's baseline mental status. 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 Social History Smoking Status: Never Smoker History of Alcohol Use: No No tobacco or alcohol abuse. She is a . One son and 2 daughters. Daughters reside in [place] and [place]. Her son, Jeffrey, lives locally and is present at the bedside with his and 3 daughters. She resides at the [facility]. Allergies Coded Allergies: Influenza Vaccines (Verified Allergy, Mild, ., 04/08/17) [place] (Verified Allergy, Mild, HIVES, 04/08/17) Tomato (Verified Allergy, Mild, HIVES, 04/08/17) Diazepam (Verified Allergy, Unknown, ., 04/08/17) Diltiazem (Verified Allergy, Unknown, ITCHY CHIN, 04/08/17) Salicylates (Verified Allergy, Unknown, unknown- has had aspirin in the past, 04/08/17) Medications Reported Home Medications Medications Dose Route/Sig Max Daily Dose Days Date Category Dose Instructions Clindamycin HCl 300 Mg Cap 1 Tab PO QID 22 04/08/17 Reported Digox (Digoxin) 125 Mcg Tab 1 Tab PO DAILY 04/08/17 Reported 1600 Warfarin Sodium 3 Mg Tab 1 Tab PO HS 04/08/17 Reported Tylenol (Acetaminophen) 325 Mg Tab 650 Mg PO Q4 PRN 09/15/16 Reported Ultram (Tramadol HCl) 50 Mg Tab 50 Mg PO Q6H PRN 09/15/16 Reported Miralax (Polyethylene Glycol 3350) 1 Pow Pow 17 Gm PO DAILY PRN 09/15/16 Reported Zocor (Simvastatin) 40 Mg Tab 40 Mg PO HS 09/15/16 Reported Metoprolol Tartrate 100 Mg Tab 200 Mg PO BID 30 08/30/16 Rx Lisinopril 5 Mg Tab 5 Mg PO QAM 30 08/30/16 Rx Vitamin C (Ascorbic Acid) 500 Mg Tab 500 Mg PO BID 06/17/16 Reported Remeron Soltab (Mirtazapine) 15 Mg Soltab 45 Mg PO HS 02/19/16 Reported Senokot S (Senna/Docusate Sodium) 1 Tab Tab 1 Tab PO DAILY 02/19/16 Reported Colace (Docusate Sodium) 100 Mg Cap 100 Mg PO BID 30 02/19/16 Reported Vitamin B-12 (Cyanocobalamin) 1,000 Mcg Tab 1,000 Mcg PO QAM 02/11/16 Reported Oyster Shell Calcium + D (Calcium Carbonate-Cholecalcife) 1 Tab Tab 1 Tab PO BIDM 01/31/16 Reported Aspirin Ec (Aspirin) 81 Mg Tab 81 Mg PO BIDM 01/30/15 Reported Physical Exam Vital Signs Past 12 Hours Date Time Temp Pulse Resp B/P (MAP) Pulse Ox O2 Delivery O2 Flow Rate FiO2 04/08/17 09:22 36 11 100 04/08/17 09:17 37 8 152/93 95 04/08/17 09:12 36 3 100 04/08/17 09:11 158/57 04/08/17 09:07 36 2 100 04/08/17 09:02 35 7 100 04/08/17 08:57 38 2 97 04/08/17 08:52 36 5 97 04/08/17 08:51 150/47 04/08/17 08:47 37 3 04/08/17 08:42 37 2 152/54 99 04/08/17 08:37 35 15 98 04/08/17 08:32 38 3 162/49 97 04/08/17 08:27 37 4 98 04/08/17 08:22 142/56 04/08/17 08:21 36 2 98 04/08/17 08:20 98 134/68 04/08/17 08:16 36 2 156/55 98 04/08/17 08:13 149/53 04/08/17 08:13 98 Nasal Cannula 2.0 04/08/17 08:11 36 4 99 04/08/17 08:08 88 Room Air 04/08/17 08:08 87 Room Air 04/08/17 08:06 38 4 97 04/08/17 08:01 36 2 98 04/08/17 07:59 144/59 04/08/17 07:56 36 2 98 04/08/17 07:52 194/56 04/08/17 07:51 37 6 96 04/08/17 07:48 38 04/08/17 07:45 36.7 38 18 149/53 98 Nasal Cannula 2.0 Gen.: No acute distress. Alert and oriented to place and self. She does not know the time/day/year. HEENT: Anicteric sclera. Neck: No JVD. No bruits. Normal carotid upstrokes bilaterally. Cardiac: PMI was non palpable. No ventricular heave. Bradycardic in the 30s but regular. Normal S1-S2. No audible murmurs, rubs, or gallops. Pulmonary: Bibasilar crackles, otherwise clear. Poor effort. Abdomen: Soft, nontender, nondistended, with normoactive bowel sounds. No bruits noted. Extremities: 2+ radial pulses bilaterally. Right above the knee amputation noted. Trace left lower extremity edema. Left foot is in dressing. No cyanosis. Psychiatric: Affect appears appropriate. Data Laboratory Results: Last 24 Hours Test 04/08/17 07:53 04/08/17 08:01 04/08/17 08:18 04/08/17 08:19 Creatine Kinase MB Ratio 2.3 White Blood Count 11.15 K/uL Red Blood Count 4.33 M/uL Hemoglobin 13.6 g/dL Hematocrit 44.4 % Mean Corpuscular Volume 102.5 fL Mean Corpuscular Hemoglobin 31.4 pg Mean Corpuscular Hemoglobin Concent 30.6 g/dl Platelet Count 221 K/uL Mean Platelet Volume 11.3 fL Neutrophils (%) (Auto) 73.0 % Lymphocytes (%) (Auto) 12.5 % Monocytes (%) (Auto) 9.0 % Eosinophils (%) (Auto) 3.2 % Basophils (%) (Auto) 0.3 % Neutrophils # (Auto) 8.15 K/uL Lymphocytes # (Auto) 1.39 K/uL Monocytes # (Auto) 1.00 K/uL Eosinophils # (Auto) 0.36 K/uL Basophils # (Auto) 0.03 K/uL RDW Standard Deviation 75.4 fL RDW Coefficient of Variation 20.7 % Immature Granulocyte % (Auto) 2.0 % Immature Granulocyte # (Auto) 0.22 K/uL Nucleated RBC Absolute Count (auto) 0.30 K/uL Nucleated Red Blood Cells % 2.7 % Polychromasia 1+ Anisocytosis PRESENT Spherocytes OCCASIONAL Prothrombin Time 35.0 SECONDS Prothromb Time International Ratio 3.1 Activated Partial Thromboplast Time 35.0 SECONDS Partial Thromboplastin Ratio 1.3 Sodium Level 146 mmol/L Potassium Level 4.5 mmol/L Chloride Level 113 mmol/L Carbon Dioxide Level 23 mmol/L Anion Gap 10.0 mmol/L 20.0 mmol/L Blood Urea Nitrogen 37 mg/dl Creatinine 1.20 mg/dl Est Creatinine Clear Calc Drug Dose 28.8 ml/min Estimated GFR () 46.7 Estimated GFR (Non- 40.3 BUN/Creatinine Ratio 30.6 Random Glucose 87 mg/dl Calcium Level 8.5 mg/dl Magnesium Level 2.7 mg/dl Total Bilirubin 0.4 mg/dl Direct Bilirubin 0.2 mg/dl Aspartate Amino Transf (AST/SGOT) 18 U/L Alanine Aminotransferase (ALT/SGPT) 22 U/L Alkaline Phosphatase 87 U/L Total Creatine Kinase 69 U/L Creatine Kinase MB 1.6 ng/ml Total Protein 7.1 gm/dl Albumin 2.4 gm/dl Thyroid Stimulating Hormone (TSH) 1.770 uIu/ml Digoxin Level 1.6 ng/ml Bedside Troponin I 0.030 ng/ml [id number] Natriuretic Peptide 5005 pg/ml Bedside Hemoglobin 14.6 g/dl Bedside Hematocrit 43 % Bedside Sodium 147 mEq/L Bedside Potassium 4.7 mEq/L Bedside Chloride 109 mEq/L Bedside Total CO2 23 mEq/l Bedside Blood Urea Nitrogen 37 mg/dl Bedside Creatinine 1.1 mg/dl Bedside Glucose (other) 92 mg/dl Bedside Ionized Calcium (Inga) 1.15 mmol/l Chest x-ray personally reviewed. Chest x-ray 04/08/2017: Pulmonary vascular congestion. Radiology has interpreted as cardiomegaly with pulmonary vascular congestion. Small pleural effusions with bibasilar consolidation. Likely atelectasis per Radiology. ECG 04/08/2017: Junctional bradycardia at 37 bpm. Incomplete right bundle- branch block. Cannot rule out anterior infarct. Nonspecific T-wave abnormality. Echocardiogram report reviewed from 08/27/2016: Hyperdynamic LV systolic function. EF 70%. Normal wall motion. Atrial fibrillation. Moderate mitral annular calcification. CT angiogram of the abdomen/pelvis with bilateral lower extremity runoff 2016: Significant motion artifact. Severe atherosclerotic disease. Complete thrombosis left common iliac artery, left internal and external iliac arteries. Majority of the left common femoral artery is thrombosed. Complete thrombosis of proximal to mid portions of left SFA. Reconstitution within the distal left SFA. Left peroneal artery occluded. Right common iliac artery 50% . Mid to distal right SFA occluded. Long segment of complete thrombosis at the origin of the superior mesenteric artery. Ostial celiac trunk 75%. Approximately 50% bilateral renal arteries. Severe emphysema. Osteomyelitis distal base of left first metatarsal stump. Assessment & Plan ASSESSMENT/PLAN: 1. Junctional bradycardia: She appears to be completely asymptomatic. Her mental status is at baseline a even better than usual according to her son who is present at the bedside. We discussed the diagnosis. She does take a total of 400 mg of metoprolol daily as well as digoxin and her digoxin level is 1.6. Because she is asymptomatic and has an acceptable blood pressure, there is no urgent need for temporary pacemaker. Recommend holding beta-narcisa and digoxin. We discussed potential for permanent pacemaker in the future or potential urgent need for transvenous temporary pacemaker. She is not certain if she would want these measures done at this time but would like to further discuss this with her son and daughters. Recommend bedrest, continuous telemetry, and pacer pads in place. 2. Atrial fibrillation: She carries a history of atrial fibrillation. Withholding of her beta-narcisa and digoxin, she may developed atrial fibrillation with rapid ventricular response at which point medications can be reintroduced at lower doses. She is on lifelong anticoagulation due to prior thrombotic issues and atrial fibrillation. Goal INR is 2-3 for atrial fibrillation. 3. Hypertension: Her blood pressureIs currently mildly elevated. It was more elevated on presentation. With mild hypertension, would not necessarily increase medications at this time given her bradycardia and the fact that she is asymptomatic. Continue to monitor. 4. Chest pain: History of her chest pain is difficult to discern as she is a poor historian. Recommend serial troponin levels. Echocardiogram given chest pain and junctional bradycardia. 5. Prefer arterial disease: Followed by vascular surgery. 6. Disposition: Cardiology will continue to follow. Dr. Cronin, impregnating tank operator, was made aware of her current cardiac issues. Erin Em of the admitting hospitalist service was also contacted via telephone and plan of care was discussed with her . Patient care discuss with Dr. Perea.
[2017-04-08] MEDS ORDERED: MAGNESIUM HYDROXIDE SUSP 30 ML UDC PO PRN (10:15)
[2017-04-08] MEDS ORDERED: ALUMINUM/MAGNESIUM/SIMETH (MAALOX MAX) 30 ML UDC PO PRN (10:15)
[2017-04-08] MEDS ORDERED: POLYETHYLENE (MIRALAX) 17 GM PACK PO PRN (10:15)
[2017-04-08] MEDS ORDERED: TRAMADOL HCL 50 MG TAB PO PRN (10:15)
[2017-04-08] MEDS ORDERED: ONDANSETRON INJ 2 MG/ML 2 ML VIAL IV PRN (10:15)
[2017-04-08] MEDS ORDERED: ACETAMINOPHEN 325 MG TAB PO PRN (10:15)
--- NOTE | 2017-04-08 10:26 | History and Physical ---
History & Physical Date & Time of Service: Apr 08, 2017 at 10:21 Chief Complaint: Lethargic Primary Care Physician: Haja Sommer M.D. History of Present Illness Source: patient, family Ms. 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 Patient is a limited historian and family at bedside supplemented events. Per EMS, patient was lethargic during exam however was answering questions appropriately. She does have delayed responses to questions asked. She gives limited information in regards to her chest pain but pointed midsternally and rated this an 8/10 but is unable to describe it. Upon arrival to the emergency department, chest pain and shortness of breath resolved and verbalizes no complaints at this time. Per family at bedside, patient is at normal mentation and actually more alert than her baseline. They state she sleeps approximately 18 hours a day and communicates very limitedly. Patient has a completed POLST and per patient and family would like to continue DO NOT RESUSCITATE status. Had a family meeting involving children at bedside and over the phone in regards to current presentation and treatment options. Had a long discussion of her current heart rhythm, basics of pacemaker procedures, and mechanism of metoprolol which is likely contributing to her presentation. After family discussion, patient and family have opted to not have a pacemaker placed. They would like to monitor her heart rhythm and rate to see if holding metoprolol and digoxin will resolve current presentation. They would like to actively treat her chronic medical conditions. However, they would like to pursue palliative options. In the ED, patient is alert and oriented with heart rates in the mid 30s and maintaining a blood pressure. EKG reveals junctional bradycardia. CXR with cardiomegaly and pulmonary vascular congestion with small pleural effusions and bibasilar consolidation. Potassium is at the high level of normal and magnesium is mildly elevated. She will be admitted to telemetry for heart rate and rhythm monitoring. Past Medical/Surgical History Medical Problems: (1) Dizziness Status: Resolved (2) Encounter for postoperative wound check Status: Resolved (3) TIA (transient ischemic attack) Status: Resolved Family History Colon Cancer Social History Smoking Status: Never Smoker Smokeless Tobacco Use: No Alcohol Use: none Drug Use: none Marital Status: single, Housing status: detention ([place]/[facility]) Occupational Status: retired Immunizations History of Influenza Vaccine: No History of Tetanus Vaccine?: Yes History of Pneumococcal: Yes Pneumococcal Date: Sep 17, 2003 History of Hepatitis B Vaccine: Unknown Multi-Drug Resistant Organisms History of MDRO: Yes Allergies Coded Allergies: Influenza Vaccines (Verified Allergy, Mild, ., 04/08/17) [place] (Verified Allergy, Mild, HIVES, 04/08/17) Tomato (Verified Allergy, Mild, HIVES, 04/08/17) Diazepam (Verified Allergy, Unknown, ., 04/08/17) Diltiazem (Verified Allergy, Unknown, ITCHY CHIN, 04/08/17) Salicylates (Verified Allergy, Unknown, unknown- has had aspirin in the past, 04/08/17) Home Medications Scheduled Ascorbic Acid (Vitamin C), 500 MG PO BID Aspirin (Aspirin Ec), 81 MG PO BIDM Calcium Carbonate-Cholecalcife (Oyster Shell Calcium + D), 1 TAB PO BIDM Clindamycin HCl (Clindamycin HCl), 1 TAB PO QID Cyanocobalamin (Vitamin B-12), 1,000 MCG PO QAM Digoxin (Digox), 1 TAB PO DAILY Docusate Sodium (Colace), 100 MG PO BID Lisinopril (Lisinopril), 5 MG PO QAM Metoprolol Tartrate (Metoprolol Tartrate), 200 MG PO BID Mirtazapine Soltab (Remeron Soltab), 45 MG PO HS Senna/Docusate Sod (Senokot S), 1 TAB PO DAILY Simvastatin (Zocor), 40 MG PO HS Warfarin Sodium (Warfarin Sodium), 1 TAB PO HS Scheduled PRN Acetaminophen (Tylenol), 650 MG PO Q4 PRN for Pain or Fever Polyethylene Glycol 3350 (Miralax), 17 GM PO DAILY PRN for Constipation Tramadol (Ultram), 50 MG PO Q6H PRN for Pain Review of Systems Constitutional: + fatigue, No fever, No chills Eyes: No worsening of vision Respiratory: No cough, No shortness of breath Cardiovascular: No chest pain Abdomen: No pain, No nausea, No vomiting, No diarrhea, No constipation Musculoskeletal: No joint pain, No muscle pain Genitourinary - Female: No dysuria Integumentary: No rash, No itch Physical Exam Vital Signs Date Time Temp Pulse Resp B/P (MAP) Pulse Ox O2 Delivery O2 Flow Rate FiO2 04/08/17 09:27 100 Nasal Cannula 2.0 04/08/17 09:22 36 11 100 04/08/17 09:17 37 8 152/93 95 04/08/17 09:12 36 3 100 04/08/17 09:11 158/57 04/08/17 09:07 36 2 100 04/08/17 09:02 35 7 100 04/08/17 08:57 38 2 97 04/08/17 08:52 36 5 97 04/08/17 08:51 150/47 04/08/17 08:47 37 3 04/08/17 08:42 37 2 152/54 99 04/08/17 08:37 35 15 98 04/08/17 08:32 38 3 162/49 97 04/08/17 08:27 37 4 98 04/08/17 08:22 142/56 04/08/17 08:21 36 2 98 04/08/17 08:20 98 134/68 04/08/17 08:16 36 2 156/55 98 04/08/17 08:13 149/53 04/08/17 08:13 98 Nasal Cannula 2.0 04/08/17 08:11 36 4 99 04/08/17 08:08 88 Room Air 04/08/17 08:08 87 Room Air 04/08/17 08:06 38 4 97 04/08/17 08:01 36 2 98 04/08/17 07:59 144/59 04/08/17 07:56 36 2 98 04/08/17 07:52 194/56 04/08/17 07:51 37 6 96 04/08/17 07:48 38 04/08/17 07:45 36.7 38 18 149/53 98 Nasal Cannula 2.0 General Appearance: WD/WN, no apparent distress, + pertinent finding (lethargic ; slow to verbally respond to questions; closes eyes frequently) Head: normocephalic, atraumatic Eyes: PERRL, sclerae normal ENT: pharynx normal, + pertinent finding (minimally dry oral mucosa) Neck: supple, no JVD, trachea midline Respiratory/Chest: lungs clear, no respiratory distress, no accessory muscle use, + decreased breath sounds Cardiovascular: no gallop, no murmur, + bradycardia Abdomen/GI: normal bowel sounds, non tender, soft, + pertinent finding (large mid-abdomen soft/non-tender/reducible hernia) Extremities/Musculoskelatal: + pertinent finding (R above the knee amputation - stump well-healed; L transmetatarsal amputations with clean/dry/intact bandage ) Neurologic/Psych: alert Skin: normal color, warm/dry Diagnostics Laboratory Results Results Past 24 Hours Test 04/08/17 07:53 04/08/17 08:01 04/08/17 08:18 04/08/17 08:19 Range/Units Creatine Kinase MB Ratio 2.3 0-3.0 White Blood Count 11.15 4.8-10.8 K/uL Red Blood Count 4.33 4.2-5.4 M/uL Hemoglobin 13.6 12.0-16.0 g/dL Hematocrit 44.4 37-47 % Mean Corpuscular Volume 102.5 80-100 fL Mean Corpuscular Hemoglobin 31.4 25-34 pg Mean Corpuscular Hemoglobin Concent 30.6 32-36 g/dl Platelet Count 221 130-400 K/uL Mean Platelet Volume 11.3 7.4-10.4 fL Neutrophils (%) (Auto) 73.0 % Lymphocytes (%) (Auto) 12.5 % Monocytes (%) (Auto) 9.0 % Eosinophils (%) (Auto) 3.2 % Basophils (%) (Auto) 0.3 % Neutrophils # (Auto) 8.15 1.4-6.5 K/uL Lymphocytes # (Auto) 1.39 1.2-3.4 K/uL Monocytes # (Auto) 1.00 0.11-0.59 K/uL Eosinophils # (Auto) 0.36 0-0.5 K/uL Basophils # (Auto) 0.03 0-0.2 K/uL RDW Standard Deviation 75.4 36.4-46.3 fL RDW Coefficient of Variation 20.7 11.5-14.5 % Immature Granulocyte % (Auto) 2.0 % Immature Granulocyte # (Auto) 0.22 0.00-0.02 K/uL Nucleated RBC Absolute Count (auto) 0.30 0-0 K/uL Nucleated Red Blood Cells % 2.7 % Polychromasia 1+ Anisocytosis PRESENT Spherocytes OCCASIONAL Prothrombin Time 35.0 9.0-12.0 SECONDS Prothromb Time International Ratio 3.1 0.9-1.1 Activated Partial Thromboplast Time 35.0 21.0-31.0 SECONDS Partial Thromboplastin Ratio 1.3 Sodium Level 146 136-145 mmol/L Potassium Level 4.5 3.5-5.1 mmol/L Chloride Level 113 98-107 mmol/L Carbon Dioxide Level 23 21-32 mmol/L Anion Gap 10.0 20.0 16-25 mmol/L Blood Urea Nitrogen 37 7-18 mg/dl Creatinine 1.20 0.60-1.20 mg/dl Est Creatinine Clear Calc Drug Dose 28.8 ml/min Estimated GFR () 46.7 Estimated GFR (Non- 40.3 BUN/Creatinine Ratio 30.6 10-20 Random Glucose 87 70-99 mg/dl Calcium Level 8.5 8.5-10.1 mg/dl Magnesium Level 2.7 1.8-2.4 mg/dl Total Bilirubin 0.4 0.2-1 mg/dl Direct Bilirubin 0.2 0-0.2 mg/dl Aspartate Amino Transf (AST/SGOT) 18 15-37 U/L Alanine Aminotransferase (ALT/SGPT) 22 12-78 U/L Alkaline Phosphatase 87 45-117 U/L Total Creatine Kinase 69 26-192 U/L Creatine Kinase MB 1.6 0.5-3.6 ng/ml Total Protein 7.1 6.4-8.2 gm/dl Albumin 2.4 3.4-5.0 gm/dl Thyroid Stimulating Hormone (TSH) 1.770 0.300-4.500 uIu/ml Digoxin Level 1.6 0.8-2.0 ng/ml Bedside Troponin I 0.030 0-0.045 ng/ml XU-Iux-N-Type Natriuretic Peptide 5005 0-1800 pg/ml Bedside Hemoglobin 14.6 12.0-16.0 g/dl Bedside Hematocrit 43 37-47 % Bedside Sodium 147 135-144 mEq/L Bedside Potassium 4.7 3.3-5.0 mEq/L Bedside Chloride 109 101-112 mEq/L Bedside Total CO2 23 24-31 mEq/l Bedside Blood Urea Nitrogen 37 7-18 mg/dl Bedside Creatinine 1.1 0.6-1.3 mg/dl Bedside Glucose (other) 92 70-99 mg/dl Bedside Ionized Calcium (Inga) 1.15 1.12-1.32 mmol/l Diagnostic Radiology SINGLE VIEW CHEST FINDINGS: An AP, portable, semierect chest radiograph is compared to study dated 03/30/2017 and correlated with chest CT dated 08/25/2016. The examination is degraded by portable technique and patient rotation. The heart is top normal for projection and there is atherosclerotic calcification of the thoracic aorta. There is pulmonary vascular congestion. Chronic interstitial thickening and elevation of the right hemidiaphragm are unchanged from previous. Small pleural effusions are noted and there is bibasilar consolidation. No pneumothorax is seen. The skeletal structures are osteopenic. Degenerative change is noted throughout the thoracic spine. IMPRESSION: 1. Cardiomegaly and pulmonary vascular congestion. 2. Small pleural effusions with bibasilar consolidation. This likely represents atelectasis. Clinical correlation will be required. EKG Junctional bradycardia Cannot rule out Anterior infarct , age undetermined Abnormal ECG When compared with ECG of 15-SEP-2016 19:31, Junctional rhythm has replaced Atrial fibrillation Vent. rate has decreased BY 73 BPM T wave inversion less evident in Lateral leads Impression Assessment and Plan Ms. 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 She was found the be in junctional bradycardia with HRs mid-30s and maintaining a BP. She is alert and oriented. Baseline mentation is generally lethargic and sleeps > 18 hours a day. Junctional Bradycardia/Third Degree AV Block: - HR remains in the mid-30s but patient is asymptomatic - more alert than baseline per family - patient and family decided against pacemaker insertion - Home regimen is Digoxin 125 mcg daily and Metoprolol 200 mg BID - will hold this medications - Admit to tele for rate and rhythm monitoring - monitor for rebound to A Fib with possibility of RVR (A Fib is patients baseline rhythm) - will admit to tele in case of need for intervention however patient is a DO NOT RESUSCITATE -- Did explain in detail the proceedings of CPR/Intubation with patient and family and both verbalize to maintain DNR status - Serial cardiac enzymes and obtain updated echocardiogram - Will allow patient to drink if poor oral intake can start fluids at low rate - Cardiology following - discussed with Dr. 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 with Current Osteomyelitis: - Clindamycin 1 tab - Consult Wound - Consult ID L ORLIN Territ[place] CVA and HLD: - ASA 81 mg daily and Simvastatin 40 mg daily DVT Prophylaxis: Coumadin Code Status: DO NOT RESUSCITATE Disposition: - Hold Metoprolol and Digoxin and monitor for resolution of current rhythm - Will place Palliative Care consultation - Patient resides at the [facility] I agree with PA assessment and plan and have seen and examined pt myself Resting comfortably in bed No distress Asymptomatic Noted junctional bradycardia COnt to hold metroprolol and digoxin Labs and EKG reviewed At this time family ok with palliative care, and no pacemaker Pt is DNR Will admit to tele Level of Care Telemetry Advanced Directives Existing Living Will: Yes Existing Power of Clerical Proofreader: Yes Resuscitation Status DO NOT RESUSCITATE VTE Prophylaxis VTE Risk Assessment Done? Y/N: Yes Risk Level: Moderate Given or contraindicated: Warfarin (Coumadin) Social Service Consult Lives in Residential
[2017-04-08 11:48] VITALS: BP 172/60; PULSE 38; TEMP 36.4; O2SAT 94
[2017-04-08] MEDS ORDERED: CLINDAMYCIN HCL PO SCH (13:00)
[2017-04-08] MEDS: CLINDAMYCIN HCL 150 MG CAP PO SCH ×3 (14:26→21:00)
[2017-04-08] MEDS: WARFARIN SOD 3 MG TAB PO SCH (16:00)
[2017-04-08 16:01] VITALS: BP 165/64; PULSE 36; TEMP 37; O2SAT 99
[2017-04-08] MEDS: ASPIRIN 81 MG ECTAB PO SCH (16:45)
[2017-04-08 20:30] VITALS: O2SAT 99
[2017-04-08] MEDS: MIRTAZAPINE SOLTAB 15 MG PO SCH (21:00)
[2017-04-08] MEDS: DOCUSATE SODIUM 100 MG CAP PO SCH (21:00)
[2017-04-08] MEDS: SIMVASTATIN 40 MG TAB PO SCH (21:00)
[2017-04-08 21:30] VITALS: BP 174/90; PULSE 38; TEMP 35.5; O2SAT 99
[2017-04-09] VITALS (9 sets, daily range): BP systolic 112–186; BP diastolic 57–84; PULSE 36–88; TEMP 36.7–37.3; O2SAT 94–100
[2017-04-09 06:05] LABS: HEMATOCRIT 43.1 % (37-47); MEAN CELL VOLUME 103.9 fL (80-100); MEAN CORPUSCULAR HEMOGLOBIN 32.3 pg (25-34); MEAN CORPUSCULAR HGB CONC 31.1 g/dl (32-36); MEAN PLATELET VOLUME 12.2 fL (7.4-10.4); PLATELET COUNT 202 K/uL (130-400); RED BLOOD COUNT 4.15 M/uL (4.2-5.4); WHITE BLOOD COUNT 11.28 K/uL (4.8-10.8)
[2017-04-09 06:07] LABS: INR 3.4 (0.9-1.1); PROTHROMBIN TIME (PATIENT) 38.1 SECONDS (9.0-12.0)
[2017-04-09 06:21] LABS: BUN/CREATININE RATIO 32.7 (10-20); CALCIUM 8.1 mg/dl (8.5-10.1); CREATININE 1.2 mg/dl (0.60-1.20); MAGNESIUM 2.3 mg/dl (1.8-2.4); POTASSIUM 4.5 mmol/L (3.5-5.1)
[2017-04-09] MEDS: CLINDAMYCIN HCL 150 MG CAP PO SCH ×4 (07:34→22:06)
[2017-04-09] MEDS: DOCUSATE SODIUM 100 MG CAP PO SCH ×2 (07:35→22:05)
[2017-04-09] MEDS: ASPIRIN 81 MG ECTAB PO SCH ×2 (07:35→15:38)
[2017-04-09] MEDS: DOCUSATE SODIUM/SENNA 50/8.6MG TAB PO SCH (07:35)
[2017-04-09] MEDS: LISINOPRIL 5 MG TAB PO SCH (07:35)
--- NOTE | 2017-04-09 09:41 | ECHOCARDIOGRAM REPORT ---
*NOTICE TO RECEIVING CONSTITUTION PARTY AGENCY This information is strictly Confidential and protected under [place] law. [place] law prohibits you from making any further disclosure of this information unless further disclosure is expressly permitted by the written consent of the person to whom it pertains or is authorized by law. A general authorization for the release of medical or other information is not sufficient for this purpose. Hospital accepts no responsibility if the information is made available to any other person, INCLUDING THE PATIENT. Interpretation Summary * Name: MAGGIE OG Study Date: 04/09/2017 06:42 AM BP: 160/84 mmHg * Patient Location: C.2T\S\E221\S\1 HR: 41 * : 1930 (M/d/yyyy) Gender: Female Height: 59 in * Age: 87 yrs Ethnicity: [place] Weight: 167 lb * Ordering Physician: Jaime Goss * Referring Physician: Self, Referred * Performed By: Vilma Huizar RDCS * * Reason For Study: JUNCTIONAL BRADYCARDIA * BSA: 1.7 m2 * -- Conclusions -- * There is mild concentric left ventricular hypertrophy. * Left ventricular systolic function is normal. * Mild aortic regurgitation. * There is moderate to severe mitral annular calcification. * Right ventricular systolic pressure is elevated at 40-50mmHg. * Compared to a study from 08/2016, the pulmonary pressures appear slightly higher, otherwise no change Procedure Details * A complete two-dimensional transthoracic echocardiogram was performed (2D, M-mode, Doppler and color flow Doppler). Left Ventricle * The left ventricle is grossly normal size. * There is mild concentric left ventricular hypertrophy. * Ejection Fraction = 55-60%. * Left ventricular systolic function is normal. Right Ventricle * The right ventricle is grossly normal size. * The right ventricular systolic function is normal. Atria * The left atrial size is normal. * Right atrial size is normal. Mitral Valve * There is moderate to severe mitral annular calcification. * There is no mitral valve stenosis. * There is trace mitral regurgitation. Tricuspid Valve * The tricuspid valve is not well visualized, but is grossly normal. * There is mild tricuspid regurgitation. * Right ventricular systolic pressure is elevated at 40-50mmHg. Aortic Valve * Aortic valve sclerosis mild, without significant aortic valvular stenosis. * Mild aortic regurgitation. Great Vessels * The aortic root is normal size. Pericardium/Pleural * There is no pericardial effusion. MMode 2D Measurements and Calculations IVSd 1.3 cm IVSs 1.8 cm LVIDd 3.3 cm LVIDs 2.2 cm LVPWd 1.4 cm LVPWs 1.6 cm IVS/LVPW 0.90 FS 32.7 % EDV(Teich) 43.5 ml ESV(Teich) 16.4 ml EF(Teich) 62.4 % EDV(cubed) 35.3 ml ESV(cubed) 10.8 ml EF(cubed) 69.5 % % IVS thick 35.4 % % LVPW thick 13.6 % LV mass(C)d 153.2 grams LV mass(C)dI 89.7 grams/m\S\2 LV mass(C)s 138.4 grams LV mass(C)sI 81.1 grams/m\S\2 SV(Teich) 27.2 ml SI(Teich) 15.9 ml/m\S\2 SV(cubed) 24.6 ml SI(cubed) 14.4 ml/m\S\2 Ao root diam 3.0 cm Ao root area 7.0 cm\S\2 LA dimension 3.6 cm LA/Ao 1.2 LVAd ap4 21.6 cm\S\2 LVLd ap4 6.8 cm EDV(MOD-sp4) 57.5 ml LVAs ap4 13.4 cm\S\2 LVLs ap4 6.0 cm ESV(MOD-sp4) 26.4 ml EF(MOD-sp4) 54.1 % LVAd ap2 19.1 cm\S\2 LVLd ap2 6.4 cm EDV(MOD-sp2) 48.5 ml LVAs ap2 11.1 cm\S\2 LVLs ap2 5.2 cm ESV(MOD-sp2) 20.1 ml EF(MOD-sp2) 58.6 % SV(MOD-sp4) 31.1 ml SI(MOD-sp4) 18.2 ml/m\S\2 SV(MOD-sp2) 28.4 ml SI(MOD-sp2) 16.6 ml/m\S\2 Doppler Measurements and Calculations MV E max jarod 159.1 cm/sec MV dec time 0.20 sec Ao V2 max 198.3 cm/sec Ao max PG 15.7 mmHg Ao max PG (full) 9.6 mmHg Ao V2 mean 128.7 cm/sec Ao mean PG 7.7 mmHg Ao mean PG (full) 4.4 mmHg Ao V2 VTI 44.0 cm AI max jarod 410.5 cm/sec AI max PG 67.4 mmHg AI dec slope 162.0 cm/sec\S\2 AI P1/2t 741.9 msec LV V1 max PG 6.1 mmHg LV V1 mean PG 3.3 mmHg LV V1 max 123.9 cm/sec LV V1 mean 84.2 cm/sec LV V1 VTI 30.2 cm SV(Ao) 308.1 ml SI(Ao) 180.4 ml/m\S\2 TR max jarod 306.4 cm/sec
--- NOTE | 2017-04-09 10:09 | Medical Consult ---
Consultation Date of Consultation: Apr 09, 2017. Attending Physician: Jeremias Mast D.O. History of Present Illness pt seen for left tma foot wound, culture from 09/15/16 grew MSSA. pt states she has been on abx at home, unsure of what. was last seen in wound center in NOV. She denies pain in foot. denies drainage or bleeding. has h/o osteo. Pt on 1:1 currently, unable to provide reliable hpi. denies cp, sob, n/v/d, states appetite is stable, no gu symptoms. no rashes. wbc 11.2, afebrile since admission. placed on clinda. all remaining ros reviewed and are negative. Past Medical/Surgical History Medical Problems: (1) Altered mental status Status: Acute (2) Anemia Status: Acute (3) Aphasia Status: Acute (4) Atrial fibrillation with RVR Status: Acute (5) Bimalleolar ankle fracture Status: Acute (6) Bradycardia Status: Acute (7) Concussion Status: Acute (8) Facial laceration Status: Acute (9) Leukocytosis Status: Acute (10) Open ankle fracture Status: Acute (11) Pulmonary embolism and infarction Status: Acute (12) Sepsis Status: Acute (13) Third degree heart block Status: Acute (14) Weakness of right lower extremity Status: Acute Family History Colon Cancer Social History Smoking Status: Never Smoker Smokeless Tobacco Use: No Alcohol Use: none Drug Use: none Marital Status: single, Housing Status: residential Occupation Status: retired Allergies Coded Allergies: Influenza Vaccines (Verified Allergy, Mild, ., 04/08/17) [place] (Verified Allergy, Mild, HIVES, 04/08/17) Tomato (Verified Allergy, Mild, HIVES, 04/08/17) Diazepam (Verified Allergy, Unknown, ., 04/08/17) Diltiazem (Verified Allergy, Unknown, ITCHY CHIN, 04/08/17) Salicylates (Verified Allergy, Unknown, unknown- has had aspirin in the past, 04/08/17) Current Inpatient Medications Current Inpatient Medications Medications (Trade) Dose Ordered Sig/Andressa Route Start Time Stop Time Status Last Admin Dose Admin Acetaminophen (Tylenol Tab) 650 mg Q4H PRN PO 04/08/17 10:15 05/08/17 10:14 Al Hydrox/Mg Hydrox/Simethicone (Maalox Max Susp) 15 ml Q4H PRN PO 04/08/17 10:15 05/08/17 10:14 Magnesium Hydroxide (Milk Of Magnesia Susp) 30 ml Q12H PRN PO 04/08/17 10:15 05/08/17 10:14 Ondansetron HCl (Zofran Inj) 4 mg Q6H PRN IV 04/08/17 10:15 05/08/17 10:14 Polyethylene (Miralax Powder Packet) 17 gm DAILY PRN PO 04/08/17 10:15 05/08/17 10:14 Aspirin (Ecotrin Tab) 81 mg BIDM PO 04/08/17 16:45 05/08/17 17:59 04/09/17 07:35 81 MG Docusate Sodium (coLACE CAP) 100 mg BID PO 04/08/17 21:00 05/08/17 20:59 04/09/17 07:35 100 MG Lisinopril (Zestril Tab) 5 mg QAM PO 04/09/17 09:00 05/09/17 08:59 04/09/17 07:35 5 MG Senna/Docusate Sodium (Senokot S Tab) 1 tab DAILY PO 04/09/17 09:00 05/09/17 08:59 04/09/17 07:35 1 TAB Simvastatin (Zocor Tab) 40 mg HS PO 04/08/17 21:00 05/08/17 20:59 Tramadol HCl (Ultram Tab) 50 mg Q6H PRN PO 04/08/17 10:15 05/08/17 10:14 Warfarin Sodium (Coumadin Tab) 3 mg DAILY@1600 PO 04/08/17 16:00 05/08/17 15:59 04/08/17 16:00 3 MG Mirtazapine (Remeron Solutab) 45 mg HS PO 04/08/17 21:00 05/08/17 20:59 Clindamycin HCl (Cleocin Cap) 300 mg QID PO 04/08/17 13:00 04/19/17 09:01 04/09/17 07:34 300 MG Physical Exam Date Time Temp Pulse Resp B/P (MAP) Pulse Ox O2 Delivery O2 Flow Rate FiO2 04/09/17 08:00 Nasal Cannula 2.0 04/09/17 07:14 36.7 41 18 160/84 (109) 100 2.0 04/09/17 04:15 94 Nasal Cannula 2.0 04/09/17 04:12 37.3 88 18 149/69 (95) 94 Nasal Cannula 2.0 04/09/17 00:15 96 Nasal Cannula 2.0 04/09/17 00:15 37.0 36 22 140/64 (89) 96 Nasal Cannula 2.0 04/08/17 21:30 35.5 38 18 174/90 (118) 99 Nasal Cannula 2.0 04/08/17 20:30 99 Nasal Cannula 2.0 04/08/17 16:01 37.0 36 20 165/64 (97) 99 2.0 04/08/17 16:00 Nasal Cannula 2.0 04/08/17 11:51 34 18 148/72 98 04/08/17 11:48 36.4 38 18 172/60 (97) 94 2.0 04/08/17 11:17 37 8 100 04/08/17 11:03 /70 04/08/17 11:02 36 28 99 04/08/17 10:47 35 15 04/08/17 10:42 37 16 100 04/08/17 10:27 35 2 100 04/08/17 10:17 147/111 04/08/17 10:12 36 6 100 General Appearance: WD/WN, no apparent distress Head: normocephalic, atraumatic Eyes: normal inspection, EOMI Neck: supple Respiratory/Chest: lungs clear, normal breath sounds, no respiratory distress Cardiovascular: regular rate, rhythm, no edema Abdomen/GI: non tender, soft Extremities/Musculoskelatal: + pertinent finding (right AKA stump c/d/i. left foot wound with min drainage, no surrounding warmth, erythema, tenderness) Neurologic/Psych: alert Skin: normal color Laboratory Results Last 24 Hours Test 04/08/17 14:11 04/08/17 20:07 04/09/17 05:11 Troponin I 0.033 ng/ml 0.038 ng/ml White Blood Count 11.28 K/uL Red Blood Count 4.15 M/uL Hemoglobin 13.4 g/dL Hematocrit 43.1 % Mean Corpuscular Volume 103.9 fL Mean Corpuscular Hemoglobin 32.3 pg Mean Corpuscular Hemoglobin Concent 31.1 g/dl RDW Standard Deviation 76.3 fL RDW Coefficient of Variation 20.7 % Platelet Count 202 K/uL Mean Platelet Volume 12.2 fL Nucleated RBC Absolute Count (auto) 0.18 K/uL Nucleated Red Blood Cells % 1.6 % Prothrombin Time 38.1 SECONDS Prothromb Time International Ratio 3.4 Sodium Level 147 mmol/L Potassium Level 4.5 mmol/L Chloride Level 115 mmol/L Carbon Dioxide Level 27 mmol/L Anion Gap 5.0 mmol/L Blood Urea Nitrogen 39 mg/dl Creatinine 1.20 mg/dl Est Creatinine Clear Calc Drug Dose 28.2 ml/min Estimated GFR () 46.7 Estimated GFR (Non- 40.3 BUN/Creatinine Ratio 32.7 Random Glucose 89 mg/dl Calcium Level 8.1 mg/dl Magnesium Level 2.3 mg/dl Assessment & Plan (1) Osteomyelitis Assessment & Plan: needs wound culture, follow results. will need continue wound care to foot
--- NOTE | 2017-04-09 13:00 | Cardiology Follow-Up ---
Subjective Date of Service: Apr 09, 2017. Pt evaluation today including: conversation w/ patient, physical exam, chart review, lab review, review of studies, review of inpatient medication list History of Present Illness She has no particular complaints. She denies chest pain, shortness of breath, palpitations, syncope, or near-syncope. There is a 1-1 at the bedside. Family met with primary hospitalist service yesterday and stated that they do not want to pursue pacemaker. A palliative care consult is pending. Social History Smoking Status: Never Smoker History of Alcohol Use: No Medications Current Inpatient Medications Medications (Trade) Dose Ordered Sig/Andressa Route Start Time Stop Time Status Last Admin Dose Admin Acetaminophen (Tylenol Tab) 650 mg Q4H PRN PO 04/08/17 10:15 05/08/17 10:14 Al Hydrox/Mg Hydrox/Simethicone (Maalox Max Susp) 15 ml Q4H PRN PO 04/08/17 10:15 05/08/17 10:14 Magnesium Hydroxide (Milk Of Magnesia Susp) 30 ml Q12H PRN PO 04/08/17 10:15 05/08/17 10:14 Ondansetron HCl (Zofran Inj) 4 mg Q6H PRN IV 04/08/17 10:15 05/08/17 10:14 Polyethylene (Miralax Powder Packet) 17 gm DAILY PRN PO 04/08/17 10:15 05/08/17 10:14 Aspirin (Ecotrin Tab) 81 mg BIDM PO 04/08/17 16:45 05/08/17 17:59 04/09/17 07:35 81 MG Docusate Sodium (coLACE CAP) 100 mg BID PO 04/08/17 21:00 05/08/17 20:59 04/09/17 07:35 100 MG Lisinopril (Zestril Tab) 5 mg QAM PO 04/09/17 09:00 05/09/17 08:59 04/09/17 07:35 5 MG Senna/Docusate Sodium (Senokot S Tab) 1 tab DAILY PO 04/09/17 09:00 05/09/17 08:59 04/09/17 07:35 1 TAB Simvastatin (Zocor Tab) 40 mg HS PO 04/08/17 21:00 05/08/17 20:59 Tramadol HCl (Ultram Tab) 50 mg Q6H PRN PO 04/08/17 10:15 05/08/17 10:14 Warfarin Sodium (Coumadin Tab) 3 mg DAILY@1600 PO 04/08/17 16:00 05/08/17 15:59 04/08/17 16:00 3 MG Mirtazapine (Remeron Solutab) 45 mg HS PO 04/08/17 21:00 05/08/17 20:59 Clindamycin HCl (Cleocin Cap) 300 mg QID PO 04/08/17 13:00 04/19/17 09:01 04/09/17 07:34 300 MG Objective Vital Signs Past 12 Hours Date Time Temp Pulse Resp B/P (MAP) Pulse Ox O2 Delivery O2 Flow Rate FiO2 04/09/17 12:00 Nasal Cannula 2.0 04/09/17 11:58 37.2 49 20 147/66 (93) 97 Nasal Cannula 2.0 04/09/17 08:00 Nasal Cannula 2.0 04/09/17 07:14 36.7 41 18 160/84 (109) 100 2.0 04/09/17 04:15 94 Nasal Cannula 2.0 04/09/17 04:12 37.3 88 18 149/69 (95) 94 Nasal Cannula 2.0 Last Recorded Weight-Kilograms: 72.800 Physical Exam Gen.: No acute distress. Alert. HEENT: Anicteric sclera. Neck: No JVD. Cardiac: No ventricular heave. Bradycardic in the 40s but regular. Normal S1- S2. 1/6 early peaking systolic ejection murmur. No rubs, or gallops. Pulmonary: Bibasilar crackles, otherwise clear. Poor effort. Abdomen: Soft, nontender, nondistended, with normoactive bowel sounds. No bruits noted. Extremities: 2+ radial pulses bilaterally. Right above the knee amputation noted. Trace left lower extremity edema. No cyanosis. Psychiatric: Affect appears appropriate. Data Laboratory Results: Last 24 Hours Test 04/08/17 14:11 04/08/17 20:07 04/09/17 05:11 Troponin I 0.033 ng/ml 0.038 ng/ml White Blood Count 11.28 K/uL Red Blood Count 4.15 M/uL Hemoglobin 13.4 g/dL Hematocrit 43.1 % Mean Corpuscular Volume 103.9 fL Mean Corpuscular Hemoglobin 32.3 pg Mean Corpuscular Hemoglobin Concent 31.1 g/dl RDW Standard Deviation 76.3 fL RDW Coefficient of Variation 20.7 % Platelet Count 202 K/uL Mean Platelet Volume 12.2 fL Nucleated RBC Absolute Count (auto) 0.18 K/uL Nucleated Red Blood Cells % 1.6 % Prothrombin Time 38.1 SECONDS Prothromb Time International Ratio 3.4 Sodium Level 147 mmol/L Potassium Level 4.5 mmol/L Chloride Level 115 mmol/L Carbon Dioxide Level 27 mmol/L Anion Gap 5.0 mmol/L Blood Urea Nitrogen 39 mg/dl Creatinine 1.20 mg/dl Est Creatinine Clear Calc Drug Dose 28.2 ml/min Estimated GFR () 46.7 Estimated GFR (Non- 40.3 BUN/Creatinine Ratio 32.7 Random Glucose 89 mg/dl Calcium Level 8.1 mg/dl Magnesium Level 2.3 mg/dl Echocardiogram report reviewed from 04/09/2017: Normal LV systolic function. Mild LVH. Mild AI. RVSP 40-50. Echocardiogram personally reviewed from 04/09/2017: Junctional rhythm [address]/T-wave abnormality. Telemetry reviewed: Junctional rhythm. Heart rate appears to be mildly increasing. Assessment and Plan ASSESSMENT/PLAN: 1. Junctional bradycardia: Heart rate appears to be mildly improving. She is asymptomatic. She and family have decided upon no pacemaker. Continue to hold metoprolol and digoxin. If she develops atrial fibrillation with rapid ventricular response, can slowly add metoprolol at much lower doses and titrate to appropriate levels. 2. Atrial fibrillation: Holding beta-narcisa and digoxin due to junctional bradycardia. Plan as above. Can restart metoprolol slowly if she develops AFib with RVR. She is on lifelong anticoagulation due to prior thrombotic issues and atrial fibrillation. Goal INR is 2-3 for atrial fibrillation. 3. Hypertension: Blood pressure has been elevated. Palliative care consult is pending. Can titrate medications cautiously as appropriate. Will defer to primary service. 4. Chest pain: Etiology of chest pain of uncertain. Troponins were not elevated. Echocardiogram demonstrates normal LV systolic function. No further ischemic evaluation recommended. 5. Prefer arterial disease: Followed by vascular surgery. 6. Disposition: Please call with any other questions or concerns. I will be away from the hospital for the next 2 days. Please do not hesitate to contact coroner/medical examiner global chief creative officer for [facility] for any assistance.
--- NOTE | 2017-04-09 13:17 | Palliative Care Consultation ---
Consultation Date of Consultation: Apr 09, 2017. Requesting Physician: Erin Em PA-C Attending Physician: Dr. Mason Reason for Consultation: Goals of care History of Present Illness This 87 year old female patient with a history of CAD, atrial fibrillation, CVA , HTN, HLD, GERD, Dementia, PAD s/p iliac stenting, right AKA, gangrene and osteomyelitis, presented to the ED yesterday with c/o lethargy, chest pain, and SOB. She came from the [facility] where she [facility]. She was found to be in a junctional bradycardic rhythm, her digoxin and metoprolol were put on hold. Cardiology is following and had discussions with family about whether or not a pacemaker would be placed. The family, including patient's son/POA, Jones Kaur, chose to not have the pacemaker placed. Jeffrey stated that the patient is confused and sedentary at baseline, sleeps almost 18 hours a day and is not able to even feed herself most times. Palliative care consulted to establish goals of care. I met with the patient in room 221. She awakens easily to name. She knew she was in [facility], thought it was 2015 and could not remember why she was here. She denied any pain or discomfort. Some questions, patient did not answer. She did say that Jeffrey, her son, is who makes medical decisions for her. Really could not discuss any further goals of care. I called the patient's son/POA, Jeffrey, on phone. He stated that the goal is really for comfort at this point and to not pursue any aggressive treatment. He confirmed she is a DNR and they decided against the pacemaker. He is uncertain at this time if he would like to make the decision to make patient "comfort measures only," and/or hospice care. Doesn't know if he would want patient to come back to the hospital for treatment. he is okay with continuing current medical care and having ongoing discussion about goals of care and plan. Past Medical/Surgical History Medical History: as above Social History Smoking Status: Never Smoker History of Alcohol Use: No Drug Use: none Marital Status: single, Housing Status: senior care (No Name/[facility]) Occupation Status: retired Review of Systems Constitutional: + weakness Respiratory: No cough, No shortness of breath Cardiac: No chest pain Abdomen: No pain, No nausea, No vomiting Female : + problem reported ([place]) Psychiatric: No anxiety Allergies Coded Allergies: Influenza Vaccines (Verified Allergy, Mild, ., 04/08/17) [place] (Verified Allergy, Mild, HIVES, 04/08/17) Tomato (Verified Allergy, Mild, HIVES, 04/08/17) Diazepam (Verified Allergy, Unknown, ., 04/08/17) Diltiazem (Verified Allergy, Unknown, ITCHY CHIN, 04/08/17) Salicylates (Verified Allergy, Unknown, unknown- has had aspirin in the past, 04/08/17) Medications Current Inpatient Medications Medications (Trade) Dose Ordered Sig/Andressa Route Start Time Stop Time Status Last Admin Dose Admin Acetaminophen (Tylenol Tab) 650 mg Q4H PRN PO 04/08/17 10:15 05/08/17 10:14 Al Hydrox/Mg Hydrox/Simethicone (Maalox Max Susp) 15 ml Q4H PRN PO 04/08/17 10:15 05/08/17 10:14 Magnesium Hydroxide (Milk Of Magnesia Susp) 30 ml Q12H PRN PO 04/08/17 10:15 05/08/17 10:14 Ondansetron HCl (Zofran Inj) 4 mg Q6H PRN IV 04/08/17 10:15 05/08/17 10:14 Polyethylene (Miralax Powder Packet) 17 gm DAILY PRN PO 04/08/17 10:15 05/08/17 10:14 Aspirin (Ecotrin Tab) 81 mg BIDM PO 04/08/17 16:45 05/08/17 17:59 04/09/17 07:35 81 MG Docusate Sodium (coLACE CAP) 100 mg BID PO 04/08/17 21:00 05/08/17 20:59 04/09/17 07:35 100 MG Lisinopril (Zestril Tab) 5 mg QAM PO 04/09/17 09:00 05/09/17 08:59 04/09/17 07:35 5 MG Senna/Docusate Sodium (Senokot S Tab) 1 tab DAILY PO 04/09/17 09:00 05/09/17 08:59 04/09/17 07:35 1 TAB Simvastatin (Zocor Tab) 40 mg HS PO 04/08/17 21:00 05/08/17 20:59 Tramadol HCl (Ultram Tab) 50 mg Q6H PRN PO 04/08/17 10:15 05/08/17 10:14 Warfarin Sodium (Coumadin Tab) 3 mg DAILY@1600 PO 04/08/17 16:00 05/08/17 15:59 04/08/17 16:00 3 MG Mirtazapine (Remeron Solutab) 45 mg HS PO 04/08/17 21:00 05/08/17 20:59 Clindamycin HCl (Cleocin Cap) 300 mg QID PO 04/08/17 13:00 04/19/17 09:01 04/09/17 13:11 300 MG Physical Exam Date Time Temp Pulse Resp B/P (MAP) Pulse Ox O2 Delivery O2 Flow Rate FiO2 04/09/17 12:00 Nasal Cannula 2.0 04/09/17 11:58 37.2 49 20 147/66 (93) 97 Nasal Cannula 2.0 04/09/17 08:00 Nasal Cannula 2.0 04/09/17 07:14 36.7 41 18 160/84 (109) 100 2.0 04/09/17 04:15 94 Nasal Cannula 2.0 04/09/17 04:12 37.3 88 18 149/69 (95) 94 Nasal Cannula 2.0 04/09/17 00:15 96 Nasal Cannula 2.0 04/09/17 00:15 37.0 36 22 140/64 (89) 96 Nasal Cannula 2.0 04/08/17 21:30 35.5 38 18 174/90 (118) 99 Nasal Cannula 2.0 04/08/17 20:30 99 Nasal Cannula 2.0 04/08/17 16:01 37.0 36 20 165/64 (97) 99 2.0 04/08/17 16:00 Nasal Cannula 2.0 General Appearance: no apparent distress, + obese ENT: hearing grossly normal Neck: supple, no JVD Respiratory: no respiratory distress, no accessory muscle use, + decreased breath sounds Cardiovascular: regular rate, rhythm, + normal peripheral pulses (normal left pedal pulse, s/p right BKA) Abdomen: normal bowel sounds, non tender, soft Neurologic/Psychiatric: alert, + disoriented Laboratory Results Last 24 Hours Test 04/08/17 14:11 04/08/17 20:07 04/09/17 05:11 Troponin I 0.033 ng/ml 0.038 ng/ml White Blood Count 11.28 K/uL Red Blood Count 4.15 M/uL Hemoglobin 13.4 g/dL Hematocrit 43.1 % Mean Corpuscular Volume 103.9 fL Mean Corpuscular Hemoglobin 32.3 pg Mean Corpuscular Hemoglobin Concent 31.1 g/dl RDW Standard Deviation 76.3 fL RDW Coefficient of Variation 20.7 % Platelet Count 202 K/uL Mean Platelet Volume 12.2 fL Nucleated RBC Absolute Count (auto) 0.18 K/uL Nucleated Red Blood Cells % 1.6 % Prothrombin Time 38.1 SECONDS Prothromb Time International Ratio 3.4 Sodium Level 147 mmol/L Potassium Level 4.5 mmol/L Chloride Level 115 mmol/L Carbon Dioxide Level 27 mmol/L Anion Gap 5.0 mmol/L Blood Urea Nitrogen 39 mg/dl Creatinine 1.20 mg/dl Est Creatinine Clear Calc Drug Dose 28.2 ml/min Estimated GFR () 46.7 Estimated GFR (Non- 40.3 BUN/Creatinine Ratio 32.7 Random Glucose 89 mg/dl Calcium Level 8.1 mg/dl Magnesium Level 2.3 mg/dl Assessment & Plan Palliative Performance Scale: 20 % Problem list: Weakness Lethargy/altered mental status Ambulatory dysfunction 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 No heroic or aggressive measures. -No plan for pacemaker. -Goal is to get patient back to the [facility], uncertain if it will be on hospice care or comfort measures only. -Jeffery is not sure he is ready to say he does not want the patient to come back to the hospital for treatment. We discussed the heart rhythm and the tenuous state this places her in, in addition to her comorbidities and sedentary lifestyle. He verbalized understanding and would like to have ongoing conversation with his family. -Jeffrey requested I call his , Crystal. I called her and left a message with my cell number. Thank you kindly for this consult. I will follow up on Sunday when I return to office.
[2017-04-09] MEDS: WARFARIN SOD 3 MG TAB PO SCH (15:39)
--- NOTE | 2017-04-09 20:15 | Hospitalist Progress Note ---
Hospitalist Progress Note Date of Service Apr 09, 2017. Subjective Pt evaluation today including: conversation w/ patient, physical exam, chart review, lab review, review of studies Patient with no complaints Objective Vital Signs Date Time Temp Pulse Resp B/P (MAP) Pulse Ox O2 Delivery O2 Flow Rate FiO2 04/09/17 16:00 Nasal Cannula 2.0 04/09/17 15:29 37.0 56 22 112/71 (85) 96 Nasal Cannula 2.0 04/09/17 12:00 Nasal Cannula 2.0 04/09/17 11:58 37.2 49 20 147/66 (93) 97 Nasal Cannula 2.0 04/09/17 08:00 Nasal Cannula 2.0 04/09/17 07:14 36.7 41 18 160/84 (109) 100 2.0 04/09/17 04:15 94 Nasal Cannula 2.0 04/09/17 04:12 37.3 88 18 149/69 (95) 94 Nasal Cannula 2.0 04/09/17 00:15 96 Nasal Cannula 2.0 04/09/17 00:15 37.0 36 22 140/64 (89) 96 Nasal Cannula 2.0 04/08/17 21:30 35.5 38 18 174/90 (118) 99 Nasal Cannula 2.0 04/08/17 20:30 99 Nasal Cannula 2.0 Physical Exam General Appearance: no apparent distress Eyes: normal inspection ENT: hearing grossly normal Neck: supple Respiratory/Chest: lungs clear Cardiovascular: + bradycardia Abdomen: normal bowel sounds Extremities: normal inspection Neurologic/Psychiatric: alert Laboratory Results Last 24 Hours Test 04/09/17 05:11 White Blood Count 11.28 K/uL Red Blood Count 4.15 M/uL Hemoglobin 13.4 g/dL Hematocrit 43.1 % Mean Corpuscular Volume 103.9 fL Mean Corpuscular Hemoglobin 32.3 pg Mean Corpuscular Hemoglobin Concent 31.1 g/dl RDW Standard Deviation 76.3 fL RDW Coefficient of Variation 20.7 % Platelet Count 202 K/uL Mean Platelet Volume 12.2 fL Nucleated RBC Absolute Count (auto) 0.18 K/uL Nucleated Red Blood Cells % 1.6 % Prothrombin Time 38.1 SECONDS Prothromb Time International Ratio 3.4 Sodium Level 147 mmol/L Potassium Level 4.5 mmol/L Chloride Level 115 mmol/L Carbon Dioxide Level 27 mmol/L Anion Gap 5.0 mmol/L Blood Urea Nitrogen 39 mg/dl Creatinine 1.20 mg/dl Est Creatinine Clear Calc Drug Dose 28.2 ml/min Estimated GFR () 46.7 Estimated GFR (Non- 40.3 BUN/Creatinine Ratio 32.7 Random Glucose 89 mg/dl Calcium Level 8.1 mg/dl Magnesium Level 2.3 mg/dl Assessment and Plan (1) Bradycardia Assessment & Plan: Palliative care consultation appreciated in cardiology input appreciated. At this time no pacemaker is being pursued. Goals of care discussion will continue with the patient's family. Her baseline level of functioning and confusion multiple comorbidities make the patient's passing away in less than 6 months highly probable. The patient will continue with present management and discharge planning will be discussed the patient's son. CODE STATUS was established as DO NOT RESUSCITATE. A question should she return to the hospital will be discussed with the son. With her advanced age and multiple comorbidities she is a poor candidate for clinically aggressive interventions. (2) Hypertension Nos (3) Esophageal Reflux (4) Peripheral arterial disease (5) History of right above knee amputation (6) CVA (cerebral vascular accident) Problem Qualifiers (1) CVA (cerebral vascular accident): CVA mechanism: embolism
[2017-04-09] MEDS: SIMVASTATIN 40 MG TAB PO SCH (22:05)
[2017-04-09] MEDS: MIRTAZAPINE SOLTAB 15 MG PO SCH (22:06)
[2017-04-10] VITALS (7 sets, daily range): BP systolic 133–212; BP diastolic 56–76; PULSE 53–68; TEMP 36.4–37.2; O2SAT 94–98
[2017-04-10 07:14] LABS: HEMATOCRIT 43.7 % (37-47); MEAN CELL VOLUME 103.1 fL (80-100); MEAN CORPUSCULAR HGB CONC 29.1 g/dl (32-36); MEAN PLATELET VOLUME 11.3 fL (7.4-10.4); PLATELET COUNT 212 K/uL (130-400); RED BLOOD COUNT 4.24 M/uL (4.2-5.4); WHITE BLOOD COUNT 9.94 K/uL (4.8-10.8)
[2017-04-10 07:30] LABS: PROTHROMBIN TIME (PATIENT) 51.8 SECONDS (9.0-12.0)
[2017-04-10] MEDS: CLINDAMYCIN HCL 150 MG CAP PO SCH ×4 (07:32→20:48)
[2017-04-10] MEDS: DOCUSATE SODIUM 100 MG CAP PO SCH ×2 (07:32→20:48)
[2017-04-10] MEDS: ASPIRIN 81 MG ECTAB PO SCH ×2 (07:32→18:59)
[2017-04-10] MEDS: LISINOPRIL 5 MG TAB PO SCH (07:33)
[2017-04-10 07:35] LABS: INR 4.5 (0.9-1.1)
[2017-04-10 07:45] LABS: BUN/CREATININE RATIO 27.3 (10-20); CALCIUM 8.2 mg/dl (8.5-10.1); CREATININE 0.99 mg/dl (0.60-1.20); MAGNESIUM 2.3 mg/dl (1.8-2.4); POTASSIUM 4.4 mmol/L (3.5-5.1)
--- NOTE | 2017-04-10 09:13 | Cardiology Follow-Up ---
Cardiology Follow-Up Date of Service Apr 10, 2017. Cardiology Follow-Up SUBJECTIVE: 87-year-old woman with history of atrial fibrillation who was admitted 2016 with profound bradycardia felt medication related. Uneventful night. She was eating breakfast and had no complaints. She did ask if she still needed oxygen. Telemetry monitoring showed heart rate in the 50- 60 bpm range with no pauses and no tachycardia. PHYSICAL EXAMINATION: No distress. Vitals: Afebrile. BP 157/66, pulse 50-60 bpm and regular, respirations 22 but unlabored. Skin: No unusual lesions or ecchymosis. HEENT: Unremarkable. Neck: Jugular venous pulse at the clavicle at 90, no obvious carotid bruits. Lungs: Apices clear on quiet respiration. Cardiac: Regular bradycardic rhythm, 2/6 basal systolic ejection murmur which is nonradiating, no diastolic murmur or gallop.. Abdomen: Benign. Extremities: Nontender without edema. Intact peripheral pulses. Neurologic: Answers simple questions, interactive affect, grossly nonfocal DATA: Pulse ox 97 % on 2 liters nasal cannula. Telemetry showed junctional rhythm at 50-60 ppm. Normal CBC. INR elevated at 4.5 (warfarin held). Sodium 146, otherwise generally normal electrolytes, BUN 27, creatinine 0.99 ( 391.2 yesterday). Magnesium 2.3. IMPRESSION: 1. History of atrial fibrillation with profound junctional bradycardia, slowly resolving off negative chronotropic meds. 2. Supratherapeutic INR, warfarin held. 3. Transient chest pain, no recurrence. No evidence of ischemia. 4. Hypertension, controlled. 5. Conservative management planned, declines pacemaker. DISCUSSION: Appear stable overall. With no evidence of tachydysrhythmia, continue to hold negative chronotropic medications. As noted, warfarin held today for supratherapeutic INR. Trial off nasal oxygen (patient comfort consideration).
[2017-04-10] MEDS: DOCUSATE SODIUM/SENNA 50/8.6MG TAB PO SCH (10:01)
--- NOTE | 2017-04-10 20:38 | Hospitalist Progress Note ---
Hospitalist Progress Note Date of Service Apr 10, 2017. Subjective Pt evaluation today including: conversation w/ patient Pain: patient with no complaints Objective Vital Signs Date Time Temp Pulse Resp B/P (MAP) Pulse Ox O2 Delivery O2 Flow Rate FiO2 04/10/17 20:00 Nasal Cannula 1.0 04/10/17 19:11 36.4 65 28 212/76 (121) 98 Nasal Cannula 1.0 04/10/17 16:00 Nasal Cannula 1.0 04/10/17 15:58 36.8 68 28 133/67 (89) 95 Nasal Cannula 2.0 04/10/17 12:01 36.6 63 22 152/56 (88) 95 Room Air 2.0 04/10/17 12:00 Nasal Cannula 2.0 04/10/17 07:31 37.2 53 22 157/66 (96) 97 Nasal Cannula 2.0 04/10/17 07:30 Nasal Cannula 2.0 04/10/17 04:00 37.1 62 20 158/72 (100) 98 Nasal Cannula 2.0 04/10/17 04:00 Nasal Cannula 2.0 04/10/17 00:15 94 Nasal Cannula 2.0 04/09/17 23:10 36.9 62 20 186/78 (114) 98 Nasal Cannula 2.0 Physical Exam General Appearance: no apparent distress Eyes: normal inspection ENT: hearing grossly normal Respiratory/Chest: lungs clear Cardiovascular: regular rate, rhythm Abdomen: normal bowel sounds Extremities: normal range of motion Neurologic/Psychiatric: alert Laboratory Results Last 24 Hours Test 04/10/17 06:40 White Blood Count 9.94 K/uL Red Blood Count 4.24 M/uL Hemoglobin 12.7 g/dL Hematocrit 43.7 % Mean Corpuscular Volume 103.1 fL Mean Corpuscular Hemoglobin 30.0 pg Mean Corpuscular Hemoglobin Concent 29.1 g/dl RDW Standard Deviation 73.4 fL RDW Coefficient of Variation 20.6 % Platelet Count 212 K/uL Mean Platelet Volume 11.3 fL Nucleated RBC Absolute Count (auto) 0.13 K/uL Nucleated Red Blood Cells % 1.3 % Prothrombin Time 51.8 SECONDS Prothromb Time International Ratio 4.5 Sodium Level 146 mmol/L Potassium Level 4.4 mmol/L Chloride Level 116 mmol/L Carbon Dioxide Level 23 mmol/L Anion Gap 7.0 mmol/L Blood Urea Nitrogen 27 mg/dl Creatinine 0.99 mg/dl Est Creatinine Clear Calc Drug Dose 34.2 ml/min Estimated GFR () 59.0 Estimated GFR (Non- 50.9 BUN/Creatinine Ratio 27.3 Random Glucose 81 mg/dl Calcium Level 8.2 mg/dl Magnesium Level 2.3 mg/dl Assessment and Plan (1) Bradycardia Assessment & Plan: Resolving with holding of beta narcisa. Palliative care consultation appreciated in cardiology input appreciated. At this time no pacemaker is being pursued. Goals of care discussion will continue with the patient's family. Her baseline level of functioning and confusion multiple comorbidities make the patient's passing away in less than 6 months highly probable. The patient will continue with present management and discharge planning will be discussed the patient's son. CODE STATUS was established as DO NOT RESUSCITATE. A question should she return to the hospital will be discussed with the son. With her advanced age and multiple comorbidities she is a poor candidate for clinically aggressive interventions. (2) Hypertension Nos (3) Esophageal Reflux (4) Peripheral arterial disease (5) History of right above knee amputation (6) CVA (cerebral vascular accident) Problem Qualifiers (1) CVA (cerebral vascular accident): CVA mechanism: embolism
[2017-04-10] MEDS: MIRTAZAPINE SOLTAB 15 MG PO SCH (20:48)
[2017-04-10] MEDS: SIMVASTATIN 40 MG TAB PO SCH (20:48)
[2017-04-11] VITALS (11 sets, daily range): BP systolic 144–190; BP diastolic 62–79; PULSE 56–87; TEMP 36.6–37.5; O2SAT 89–97
[2017-04-11 06:34] LABS: HEMATOCRIT 42.9 % (37-47); MEAN CELL VOLUME 101.7 fL (80-100); MEAN CORPUSCULAR HEMOGLOBIN 31.5 pg (25-34); MEAN PLATELET VOLUME 11.1 fL (7.4-10.4); PLATELET COUNT 205 K/uL (130-400); RED BLOOD COUNT 4.22 M/uL (4.2-5.4); WHITE BLOOD COUNT 9.98 K/uL (4.8-10.8)
[2017-04-11 06:58] LABS: PROTHROMBIN TIME (PATIENT) 55.9 SECONDS (9.0-12.0)
[2017-04-11 07:05] LABS: INR 4.9 (0.9-1.1)
[2017-04-11 07:08] LABS: BUN/CREATININE RATIO 24.6 (10-20); CALCIUM 8.2 mg/dl (8.5-10.1); CREATININE 0.73 mg/dl (0.60-1.20); MAGNESIUM 2.2 mg/dl (1.8-2.4); POTASSIUM 4.1 mmol/L (3.5-5.1)
[2017-04-11] MEDS: CLINDAMYCIN HCL 150 MG CAP PO SCH ×4 (08:34→21:15)
[2017-04-11] MEDS: LISINOPRIL 5 MG TAB PO SCH (08:35)
[2017-04-11] MEDS: DOCUSATE SODIUM/SENNA 50/8.6MG TAB PO SCH (09:00)
[2017-04-11] MEDS: DOCUSATE SODIUM 100 MG CAP PO SCH ×2 (09:00→21:15)
[2017-04-11] MEDS: ASPIRIN 81 MG ECTAB PO SCH ×2 (10:12→18:13)
[2017-04-11] MEDS ORDERED: NURSING VERBAL MED ORDER ONE ×2 (11:45→12:30)
[2017-04-11] MEDS ORDERED: VALSARTAN 80 MG TAB PO ONE (12:15)
--- NOTE | 2017-04-11 13:10 | Progress Note ---
Subjective Date of Service: Apr 11, 2017. Subjective Patient remains obtunded. She appears to be tolerating this well. She has had episodes of bradycardia which the family has decided against a pacemaker. She is also being evaluated by palliative care for goals of therapy. She has tolerated clindamycin well. She has not had any diarrhea. She has no fevers or chills. She has not had any culture data during this hospital stay. Her white blood cell count is 9.9. Her sed rate was within normal limits. Problem List Medical Problems: (1) Altered mental status Status: Acute (2) Anemia Status: Acute (3) Aphasia Status: Acute (4) Atrial fibrillation with RVR Status: Acute (5) Bimalleolar ankle fracture Status: Acute (6) Bradycardia Status: Acute (7) Concussion Status: Acute (8) Facial laceration Status: Acute (9) Leukocytosis Status: Acute (10) Open ankle fracture Status: Acute (11) Pulmonary embolism and infarction Status: Acute (12) Sepsis Status: Acute (13) Third degree heart block Status: Acute (14) Weakness of right lower extremity Status: Acute Objective Vital Signs Date Time Temp Pulse Resp B/P (MAP) Pulse Ox O2 Delivery O2 Flow Rate FiO2 04/11/17 11:20 69 175/62 (99) 04/11/17 10:48 37.3 69 20 166/74 (104) 97 Nasal Cannula 2.0 163/77 (105) 04/11/17 08:40 96 Nasal Cannula 2.0 04/11/17 07:38 36.7 80 20 190/72 (111) 89 Room Air 185/74 (111) 04/11/17 04:03 36.6 56 18 172/71 (104) 94 Room Air 04/11/17 04:00 Room Air 04/11/17 00:00 Room Air 04/11/17 00:00 36.9 68 18 158/72 (100) 94 Room Air 04/10/17 20:00 152/68 (96) 04/10/17 20:00 Nasal Cannula 1.0 04/10/17 19:11 36.4 65 28 212/76 (121) 98 Nasal Cannula 1.0 04/10/17 16:00 Nasal Cannula 1.0 04/10/17 15:58 36.8 68 28 133/67 (89) 95 Nasal Cannula 2.0 Laboratory Results Last 24 Hours Test 7/5/17 06:02 White Blood Count 9.98 K/uL Red Blood Count 4.22 M/uL Hemoglobin 13.3 g/dL Hematocrit 42.9 % Mean Corpuscular Volume 101.7 fL Mean Corpuscular Hemoglobin 31.5 pg Mean Corpuscular Hemoglobin Concent 31.0 g/dl RDW Standard Deviation 73.8 fL RDW Coefficient of Variation 20.9 % Platelet Count 205 K/uL Mean Platelet Volume 11.1 fL Nucleated RBC Absolute Count (auto) 0.11 K/uL Nucleated Red Blood Cells % 1.1 % Prothrombin Time 55.9 SECONDS Prothromb Time International Ratio 4.9 Sodium Level 145 mmol/L Potassium Level 4.1 mmol/L Chloride Level 115 mmol/L Carbon Dioxide Level 23 mmol/L Anion Gap 7.0 mmol/L Blood Urea Nitrogen 18 mg/dl Creatinine 0.73 mg/dl Est Creatinine Clear Calc Drug Dose 46.5 ml/min Estimated GFR () 85.2 Estimated GFR (Non- 73.5 BUN/Creatinine Ratio 24.6 Random Glucose 81 mg/dl Calcium Level 8.2 mg/dl Magnesium Level 2.2 mg/dl Assessment and Plan (1) Osteomyelitis Assessment & Plan: She can continue clindamycin as previously prescribed. If there is any worsening I would recommend a wound culture. Although her sed rate would speak against new or worsening infection. The family is to make decisions regarding additional hospital care. If [facility] she certainly can follow up with infectious diseases there as well. No new Infectious disease's recommendations at this time.
--- NOTE | 2017-04-11 14:20 | Palliative Care Progress Note ---
Palliative Care Progress Note Date of Service Apr 11, 2017. Subjective Pt evaluation today including: conversation w/ patient, physical exam, chart review, conversation w/ data management consultant (Dr. Mason) Pain: 0/10 PO Intake: tolerating diet, now feeding herself Voiding: thomason catheter in place -Patient is more alert. Oriented to person, place and time. Not oriented to event. -Patient even more improved. Son stated to me on Sunday that this is the most awake and conversant his mother has been in six months. -Malinda really could not offer much conversation about goals of care. She is okay with all decisions going through her son, Jones -I called and left a message for Jones. Review of Systems Constitutional: + weakness Respiratory: No cough, No shortness of breath Cardiac: No chest pain Abdomen: No pain, No nausea, No vomiting Psychiatric: No depression symptoms, No anxiety Objective Vital Signs Date Time Temp Pulse Resp B/P (MAP) Pulse Ox O2 Delivery O2 Flow Rate FiO2 04/11/17 13:39 79 166/68 (100) 04/11/17 12:00 Nasal Cannula 2.0 04/11/17 11:20 69 175/62 (99) 04/11/17 10:48 37.3 69 20 166/74 (104) 97 Nasal Cannula 2.0 163/77 (105) 04/11/17 08:40 96 Nasal Cannula 2.0 04/11/17 08:00 97 Nasal Cannula 2.0 04/11/17 07:38 36.7 80 20 190/72 (111) 89 Room Air 185/74 (111) 04/11/17 04:03 36.6 56 18 172/71 (104) 94 Room Air 04/11/17 04:00 Room Air 04/11/17 00:00 Room Air 04/11/17 00:00 36.9 68 18 158/72 (100) 94 Room Air 04/10/17 20:00 152/68 (96) 04/10/17 20:00 Nasal Cannula 1.0 04/10/17 19:11 36.4 65 28 212/76 (121) 98 Nasal Cannula 1.0 04/10/17 16:00 Nasal Cannula 1.0 04/10/17 15:58 36.8 68 28 133/67 (89) 95 Nasal Cannula 2.0 Physical Exam General Appearance: no apparent distress, + obese ENT: hearing grossly normal Neck: supple, no JVD Respiratory/Chest: no respiratory distress, no accessory muscle use, + decreased breath sounds Cardiovascular: + irregularly irregular (normal rate), + normal peripheral pulses (right BKA, left pedal is normal) Abdomen: normal bowel sounds, non tender, soft, + pertinent finding (hernia noted) Neurologic/Psychiatric: alert, normal mood/affect, oriented x 3 (with some forgetfulness) Laboratory Results Last 24 Hours Test 04/11/17 06:02 White Blood Count 9.98 K/uL Red Blood Count 4.22 M/uL Hemoglobin 13.3 g/dL Hematocrit 42.9 % Mean Corpuscular Volume 101.7 fL Mean Corpuscular Hemoglobin 31.5 pg Mean Corpuscular Hemoglobin Concent 31.0 g/dl RDW Standard Deviation 73.8 fL RDW Coefficient of Variation 20.9 % Platelet Count 205 K/uL Mean Platelet Volume 11.1 fL Nucleated RBC Absolute Count (auto) 0.11 K/uL Nucleated Red Blood Cells % 1.1 % Prothrombin Time 55.9 SECONDS Prothromb Time International Ratio 4.9 Sodium Level 145 mmol/L Potassium Level 4.1 mmol/L Chloride Level 115 mmol/L Carbon Dioxide Level 23 mmol/L Anion Gap 7.0 mmol/L Blood Urea Nitrogen 18 mg/dl Creatinine 0.73 mg/dl Est Creatinine Clear Calc Drug Dose 46.5 ml/min Estimated GFR () 85.2 Estimated GFR (Non- 73.5 BUN/Creatinine Ratio 24.6 Random Glucose 81 mg/dl Calcium Level 8.2 mg/dl Magnesium Level 2.2 mg/dl Assessment and Plan Problem list: Weakness Lethargy/altered mental status Ambulatory dysfunction 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 -Family and patient decided on no pacemaker. Heart rate is much improved as well as patient's mental status. Digoxin and metoprolol still held. -Plan as of Sunday when I spoke to son was to get the patient back to the [facility] where she's been. He was not quite ready to make a decision on whether or not he'd want his mother to come back to the hospital for treatment. However , given the patient's vast improvement over the last 48 hours, I suspect that he would be okay with her returning for treatment. -Patient has no symptomatic complaints at this time. Thank you again for this consult. Please contact me with any further palliative care needs. Palliative Performance Scale: 30 %
--- NOTE | 2017-04-11 17:12 | Hospitalist Progress Note ---
Hospitalist Progress Note Date of Service Apr 11, 2017. Subjective Pt evaluation today including: conversation w/ patient, chart review, lab review Patient with no complaints Objective Vital Signs Date Time Temp Pulse Resp B/P (MAP) Pulse Ox O2 Delivery O2 Flow Rate FiO2 04/11/17 15:27 37.5 86 28 148/62 (90) 97 Nasal Cannula 2.0 04/11/17 13:39 79 166/68 (100) 04/11/17 12:00 Nasal Cannula 2.0 04/11/17 11:20 69 175/62 (99) 04/11/17 10:48 37.3 69 20 166/74 (104) 97 Nasal Cannula 2.0 163/77 (105) 04/11/17 08:40 96 Nasal Cannula 2.0 04/11/17 08:00 97 Nasal Cannula 2.0 04/11/17 07:38 36.7 80 20 190/72 (111) 89 Room Air 185/74 (111) 04/11/17 04:03 36.6 56 18 172/71 (104) 94 Room Air 04/11/17 04:00 Room Air 04/11/17 00:00 Room Air 04/11/17 00:00 36.9 68 18 158/72 (100) 94 Room Air 04/10/17 20:00 152/68 (96) 04/10/17 20:00 Nasal Cannula 1.0 04/10/17 19:11 36.4 65 28 212/76 (121) 98 Nasal Cannula 1.0 Physical Exam General Appearance: no apparent distress Eyes: normal inspection ENT: hearing grossly normal Neck: supple Respiratory/Chest: lungs clear Cardiovascular: regular rate, rhythm Abdomen: normal bowel sounds Extremities: non-tender Neurologic/Psychiatric: alert Laboratory Results Last 24 Hours Test 04/11/17 06:02 White Blood Count 9.98 K/uL Red Blood Count 4.22 M/uL Hemoglobin 13.3 g/dL Hematocrit 42.9 % Mean Corpuscular Volume 101.7 fL Mean Corpuscular Hemoglobin 31.5 pg Mean Corpuscular Hemoglobin Concent 31.0 g/dl RDW Standard Deviation 73.8 fL RDW Coefficient of Variation 20.9 % Platelet Count 205 K/uL Mean Platelet Volume 11.1 fL Nucleated RBC Absolute Count (auto) 0.11 K/uL Nucleated Red Blood Cells % 1.1 % Prothrombin Time 55.9 SECONDS Prothromb Time International Ratio 4.9 Sodium Level 145 mmol/L Potassium Level 4.1 mmol/L Chloride Level 115 mmol/L Carbon Dioxide Level 23 mmol/L Anion Gap 7.0 mmol/L Blood Urea Nitrogen 18 mg/dl Creatinine 0.73 mg/dl Est Creatinine Clear Calc Drug Dose 46.5 ml/min Estimated GFR () 85.2 Estimated GFR (Non- 73.5 BUN/Creatinine Ratio 24.6 Random Glucose 81 mg/dl Calcium Level 8.2 mg/dl Magnesium Level 2.2 mg/dl Assessment and Plan (1) Bradycardia Assessment & Plan: Resolved beta blockers discontinued (2) Hypertension Nos (3) Esophageal Reflux (4) Peripheral arterial disease (5) History of right above knee amputation (6) CVA (cerebral vascular accident) Assessment & Plan: Supratherapeutic INR will give 1 dose of vitamin K today and check in the morning Problem Qualifiers (1) CVA (cerebral vascular accident): CVA mechanism: embolism
[2017-04-11] MEDS ORDERED: PHYTONADIONE 5 MG TAB PO ONE (17:30)
[2017-04-11 19:13] LABS: HEMATOCRIT 42.2 % (37-47); MEAN CELL VOLUME 102.7 fL (80-100); MEAN CORPUSCULAR HEMOGLOBIN 32.8 pg (25-34); MEAN PLATELET VOLUME 11.6 fL (7.4-10.4); PLATELET COUNT 206 K/uL (130-400); RED BLOOD COUNT 4.11 M/uL (4.2-5.4); WHITE BLOOD COUNT 10.79 K/uL (4.8-10.8)
[2017-04-11 19:36] LABS: PROTHROMBIN TIME (PATIENT) 62.1 SECONDS (9.0-12.0)
[2017-04-11 19:40] LABS: INR 5.4 (0.9-1.1)
[2017-04-11] MEDS: SIMVASTATIN 40 MG TAB PO SCH (21:15)
[2017-04-11] MEDS: MIRTAZAPINE SOLTAB 15 MG PO SCH (21:16)
[2017-04-12] VITALS: BP 169/67; PULSE 84; TEMP 37.3; O2SAT 97
[2017-04-12 00:24] LABS: INR 3.1 (0.9-1.1); PROTHROMBIN TIME (PATIENT) 34.6 SECONDS (9.0-12.0)
[2017-04-12 04:00] VITALS: BP 147/63; PULSE 82; TEMP 36.6; O2SAT 97
[2017-04-12 07:36] VITALS: BP 145/64; PULSE 80; TEMP 36.7; O2SAT 95
[2017-04-12] MEDS: DOCUSATE SODIUM/SENNA 50/8.6MG TAB PO SCH (07:47)
[2017-04-12] MEDS: ASPIRIN 81 MG ECTAB PO SCH (07:47)
[2017-04-12] MEDS: CLINDAMYCIN HCL 150 MG CAP PO SCH ×2 (07:48→12:07)
[2017-04-12] MEDS: DOCUSATE SODIUM 100 MG CAP PO SCH (07:48)
--- NOTE | 2017-04-12 11:23 | Discharge Instructions ---
Discharge Instructions Date of Service Apr 12, 2017. Admission Reason for Admission: Junctional Bradycardia Discharge Discharge Diagnosis / Problem: bradycardia Discharge Goals Goal(s): Improve function Activity Recommendations Activity Limitations: resume your previous activity . Instructions / Follow-Up Instructions / Follow-Up Primary Care Doctor in 1 week, or snf attending Current Hospital Diet Patient's current hospital diet: Low Sodium Diet (2gm Na), AHA Diet (Heart Healthy) Discharge Diet Recommended Diet: AHA Diet (Heart Healthy) Pending Studies Studies pending at discharge: no Medical Emergencies . Who to Call and When: Medical Emergencies: If at any time you feel your situation is an emergency, please call 911 immediately. . Non-Emergent Contact Non-Emergency issues call your: Primary Care Provider . . "Provider Documentation" section prepared by Vernon Mason. . VTE Core Measure Inpt VTE Proph given/why not?: Warfarin (Coumadin)
[2017-04-12 12:00] VITALS: BP 151/69; PULSE 77; TEMP 37.1; O2SAT 96
[2017-04-12 12:22] VITALS: BP 151/69; PULSE 77; TEMP 37.1; O2SAT 96
[2017-04-12 15:15] VITALS: BP 163/71; PULSE 70; TEMP 37.2; O2SAT 99
--- NOTE | 2017-04-12 18:28 | Cardiology Follow-Up ---
Subjective Date of Service: Apr 12, 2017. Pt evaluation today including: conversation w/ patient, physical exam, chart review, lab review, review of studies, review of inpatient medication list History of Present Illness She denies chest pain, shortness of breath, syncope, near-syncope, palpitations. She states that she would like to go home. Social History Smoking Status: Never Smoker History of Alcohol Use: No Review of Systems Respiratory: No cough, No shortness of breath Cardiac: No chest pain Medications Medications Dose Route/Sig Max Daily Dose Days Date Category Clindamycin HCl 300 Mg Cap 1 Tab PO QID 22 04/08/17 Reported Tylenol (Acetaminophen) 325 Mg Tab 650 Mg PO Q4 PRN 09/15/16 Reported Ultram (Tramadol HCl) 50 Mg Tab 50 Mg PO Q6H PRN 09/15/16 Reported Miralax (Polyethylene Glycol 3350) 1 Pow Pow 17 Gm PO DAILY PRN 09/15/16 Reported Zocor (Simvastatin) 40 Mg Tab 40 Mg PO HS 09/15/16 Reported Lisinopril 5 Mg Tab 5 Mg PO QAM 30 08/30/16 Rx Vitamin C (Ascorbic Acid) 500 Mg Tab 500 Mg PO BID 06/17/16 Reported Remeron Soltab (Mirtazapine) 15 Mg Soltab 45 Mg PO HS 02/19/16 Reported Senokot S (Senna/Docusate Sodium) 1 Tab Tab 1 Tab PO DAILY 02/19/16 Reported Colace (Docusate Sodium) 100 Mg Cap 100 Mg PO BID 30 02/19/16 Reported Vitamin B-12 (Cyanocobalamin) 1,000 Mcg Tab 1,000 Mcg PO QAM 02/11/16 Reported Oyster Shell Calcium + D (Calcium Carbonate-Cholecalcife) 1 Tab Tab 1 Tab PO BIDM 01/31/16 Reported Aspirin Ec (Aspirin) 81 Mg Tab 81 Mg PO BIDM 01/30/15 Reported Meds Administered (Past 24Hrs) Medications (Trade) Dose Ordered Sig/Andressa Route Start Time Stop Time Status Last Admin Dose Admin Valsartan (Diovan Tab) 80 mg 1215 ONCE PO 04/11/17 12:15 04/11/17 12:22 DC 04/11/17 12:20 80 MG Phytonadione (Mephyton Tab) 5 mg NOW ONCE PO 04/11/17 17:30 04/11/17 17:31 DC 04/11/17 18:13 5 MG Objective Vital Signs Past 12 Hours Date Time Temp Pulse Resp B/P (MAP) Pulse Ox O2 Delivery O2 Flow Rate FiO2 04/12/17 15:15 37.2 70 18 163/71 (101) 99 Room Air 04/12/17 12:22 37.1 77 17 96 Nasal Cannula 04/12/17 12:00 37.1 77 17 151/69 (96) 96 Nasal Cannula 2.0 04/12/17 12:00 Nasal Cannula 2.0 04/12/17 08:00 Nasal Cannula 2.0 04/12/17 07:36 36.7 80 19 145/64 (91) 95 Nasal Cannula 2.0 Last Recorded Weight-Kilograms: 73.100 Intake & Output 8-Hour Column 04/12/17 04/13/17 04/13/17 16:00 00:00 08:00 Intake Total 408 ml Output Total 500 ml Balance -92 ml 24-Hour Column 04/13/17 08:00 Intake Total 408 ml Output Total 500 ml Balance -92 ml Physical Exam Gen.: No acute distress. Alert. HEENT: Anicteric sclera. Neck: No JVD. Cardiac: No ventricular heave. Regular with occasional ectopy. Normal S1-S2. 1 /6 early peaking systolic ejection murmur. No rubs, or gallops. Pulmonary: Clear to auscultation bilaterally without wheezes, rales, or rhonchi. Abdomen: Soft, nontender, nondistended, with normoactive bowel sounds. No bruits noted. Extremities: 2+ radial pulses bilaterally. Right above the knee amputation noted. Trace left lower extremity edema. No cyanosis. Psychiatric: Affect appears appropriate. Data Laboratory Results: Last 24 Hours Test 04/11/17 18:25 04/12/17 00:03 White Blood Count 10.79 K/uL Red Blood Count 4.11 M/uL Hemoglobin 13.5 g/dL Hematocrit 42.2 % Mean Corpuscular Volume 102.7 fL Mean Corpuscular Hemoglobin 32.8 pg Mean Corpuscular Hemoglobin Concent 32.0 g/dl RDW Standard Deviation 76.8 fL RDW Coefficient of Variation 20.9 % Platelet Count 206 K/uL Mean Platelet Volume 11.6 fL Nucleated RBC Absolute Count (auto) 0.09 K/uL Nucleated Red Blood Cells % 0.8 % Prothrombin Time 62.1 SECONDS 34.6 SECONDS Prothromb Time International Ratio 5.4 3.1 ECG ordered and personally reviewed. ECG at 9:33 a.m. on 04/12/2017 demonstrated sinus rhythm with PACs [address]/T-wave abnormality. Telemetry reviewed: ECG personally reviewed. Possible sinus rhythm with PACs. Assessment and Plan ASSESSMENT/PLAN: 1. Junctional bradycardia: She is now in sinus rhythm. Her heart rate is reasonable. Would not restart beta-narcisa or digoxin at this time. 2. Atrial fibrillation: Beta-narcisa and digoxin therapy have been discontinued as she presented with junctional bradycardia. She is currently in sinus rhythm. If she develops AFib with RVR, can start lower doses of beta- narcisa and titrate as necessary. She was taking a total of 400 mg of metoprolol, in addition to digoxin, prior to this hospitalization. Can continue anticoagulation for stroke risk reduction when INR enters the therapeutic range, as long as family continues to wish for medical therapy. Palliative care has been following. 3. Hypertension: Blood pressure has been elevated. Can titrate medications as appropriate. Will defer to primary service. 4. Chest pain: Etiology of chest pain of uncertain. Troponins were not elevated. Echocardiogram demonstrates normal LV systolic function. No further ischemic evaluation recommended. She denies any further chest discomfort. 5. Prefer arterial disease: Followed by vascular surgery. 6. Disposition: Patient was seen early this morning, prior to her discharge. Please call for any other questions or concerns.
--- NOTE | 2017-04-29 22:34 | Discharge Summary ---
Discharge Summary Date of Service Apr 29, 2017. Discharge Summary Admission Date: Apr 08, 2017 at 10:15 Discharge Date: Apr 12, 2017 Discharge Disposition: Personal care Principal Diagnosis: junctional bradycardia Problems/Secondary Diagnoses: Failure to thrive Immunizations: Have You Had Influenza Vaccine: No History of Tetanus Vaccine?: Yes History of Pneumococcal: Yes Pneumococcal Date: Sep 17, 2003 History of Hepatitis B Vaccine: Unknown Medication Reconciliation Continued Medications: Acetaminophen (Tylenol) 325 Mg Tab 650 MG PO Q4 PRN for Pain or Fever, TAB Ascorbic Acid (Vitamin C) 500 Mg Tab 500 MG PO BID Aspirin (Aspirin Ec) 81 Mg Tab 81 MG PO BIDM Calcium Carbonate-Cholecalcife (Oyster Shell Calcium + D) 1 Tab Tab 1 TAB PO BIDM Clindamycin HCl (Clindamycin HCl) 300 Mg Cap 1 TAB PO QID for 22 Days, #88 Cyanocobalamin (Vitamin B-12) 1,000 Mcg Tab 1000 MCG PO QAM, TAB Docusate Sodium (Colace) 100 Mg Cap 100 MG PO BID for 30 Days, #60 CAP Lisinopril (Lisinopril) 5 Mg Tab 5 MG PO QAM for 30 Days, #30 TAB Mirtazapine Soltab (Remeron Soltab) 15 Mg Soltab 45 MG PO HS, TAB Polyethylene Glycol 3350 (Miralax) 1 Pow Pow 17 GM PO DAILY PRN for Constipation, #255 GM Senna/Docusate Sod (Senokot S) 1 Tab Tab 1 TAB PO DAILY, TAB Simvastatin (Zocor) 40 Mg Tab 40 MG PO HS, TAB Tramadol (Ultram) 50 Mg Tab 50 MG PO Q6H PRN for Pain, TAB Discontinued Medications: Digoxin (Digox) 125 Mcg Tab 1 TAB PO DAILY 1600 Metoprolol Tartrate (Metoprolol Tartrate) 100 Mg Tab 200 MG PO BID for 30 Days, #120 TAB Warfarin Sodium (Warfarin Sodium) 3 Mg Tab 1 TAB PO HS Hospital Course (1) Bradycardia Resolved beta blockers discontinued, followed by cardiology. Pacemaker insertion declined by the family and not needed secondary to discontinuation of beta narcisa and digoxin. (2) Hypertension Nos (3) Esophageal Reflux (4) Peripheral arterial disease (5) History of right above knee amputation (6) CVA (cerebral vascular accident) Patient presented with severe heart block was on multiple agents including beta- blockade and digoxin which were discontinued. The patient responded to the discontinuation of her blockade and digoxin with an increase in her heart rate and also any increased appetite. In addition her Coumadin levels were toxic. Coumadin has been discontinued. Detailed discussion about atrial fibrillation and stroke was held with the patient's son. Discussions about minimizing rehospitalization was also had with the patient's family. Patient was discharged back to the [facility] in stable condition. Total Time Spent: Greater than 30 minutes This includes examination of the patient, discharge planning, medication reconciliation, and communication with other providers. Discharge Instructions Please refer to the electronic Patient Visit Report (Discharge Instructions) for additional information. Problem Qualifiers (1) CVA (cerebral vascular accident): CVA mechanism: embolism
== END 2017-04-12 16:11 | DRG 309 ==
LOC: EDBD 07:41 → C.EDA 07:43 → C.2T 10:15 → ENRESERV 10:25
PROVIDERS: ADMIT Hospitalist; ATTEND Internal Medicine
DX: I44.2 Atrioventricular block, complete (principal); M86.9 Osteomyelitis, unspecified; I48.1 Persistent atrial fibrillation; I10 Essential (primary) hypertension; I73.9 Peripheral vascular disease, unspecified; K21.9 Gastro-esophageal reflux disease without esophagitis; I25.10 Atherosclerotic heart disease of native coronary artery without angina pectoris; F03.90 Unspecified dementia, unspecified severity, without behavioral disturbance, psychotic disturbance, mood disturbance, and anxiety; Z51.5 Encounter for palliative care; Z79.01 Long term (current) use of anticoagulants; Z79.82 Long term (current) use of aspirin; Z79.899 Other long term (current) drug therapy; Z66 Do not resuscitate; Z89.611 Acquired absence of right leg above knee; Z82.49 Family history of ischemic heart disease and other diseases of the circulatory system; Z86.73 Personal history of transient ischemic attack (TIA), and cerebral infarction without residual deficits

== ENCOUNTER → 2018-05-06 | Outpatient (CLI) | payer OTHER ==
[~2018-05-06] MED LIST changes: -AMOX500T PO; +LISI-730 PO; -LNX125 PO; -LPR100 PO; -LSN5 PO; -OXYC5TAB PO; -WARF-285 PO; -WARF2.5T8 PO
[2018-05-06 10:16] LABS: BLOOD UREA NITROGEN 22 mg/dl (7-18); CALCIUM 8.3 mg/dl (8.5-10.1); CARBON DIOXIDE 22 mmol/L (21-32); GLUCOSE 99 mg/dl (70-99); POTASSIUM 3.9 mmol/L (3.5-5.1); SODIUM 139 mmol/L (136-145)
== END ==
LOC: C.LABVPSUA 09:06
PROVIDERS: ATTEND Internal Medicine Critical Care Medicine
DX: I48.91 Unspecified atrial fibrillation (principal)